=== PATIENT | male | born 1975 | race Caucasian/White ===

== ENCOUNTER 2019-06-19 00:21 | Inpatient (IN) | payer OTHER, SELFPAY ==
[2019-06-19] MEDS ORDERED: Lorazepam 2 MG/ML VIAL ONE (00:39)
[2019-06-19 00:50] LABS: Actual Bicarbonate (HCO3a) 25.2 mEq/L (22-28); Analyzer IN Cardio ER; Base Excess (BEa) -6.7 mEq/L (-2.0 to +3.0); Calcium, Ionized 1.12 mmol/L (1.12-1.30); Carboxyhemoglobin (COHb) 0.3 gm% (0.0-3.0); Hemoglobin (Hb) 15.9 g/dL (14.0-18.0); Potassium - ABG Lab 3.55 mmol/L (3.70-5.30)
[2019-06-19] MEDS ORDERED: niCARdipine 20MG In NaCl 20 MG/200 ML BAG ONE (00:50)
[2019-06-19 01:05] LABS: Puncture Site LRA; pH, Arterial 7.11 (7.35-7.45)
[2019-06-19 01:44] LABS: Actual Bicarbonate (HCO3a) 24.4 mEq/L (22-28); Analyzer IN Cardio ER; Base Excess (BEa) -5.9 mEq/L (-2.0 to +3.0); Carboxyhemoglobin (COHb) 0.5 gm% (0.0-3.0); O2 Tension (PaO2), arterial 65.8 mmHg (80.0-100.0); Potassium - ABG Lab 3.49 mmol/L (3.70-5.30)
[2019-06-19] MEDS ORDERED: Promethazine HCl 12.5 MG in Sodium Chloride 0.9% 50 ML IVPB PRN (02:07)
[2019-06-19] MEDS ORDERED: cloNIDine 0.1 MG TAB PO PRN (02:07)
[2019-06-19] MEDS ORDERED: Ondansetron PF 4 MG/2 ML Vial IVP PRN (02:07)
[2019-06-19] MEDS ORDERED: Morphine 2 MG/ML SYRINGE SLOW IVP PRN ×2 (02:07→02:19)
[2019-06-19 02:08] LABS: CO2 Tension 69.1 mmHg (35.0-45.0); pH, Arterial 7.17 (7.35-7.45)
[2019-06-19] MEDS ORDERED: Dextrose 5% in Water 1,000 ML IV PRN ×2 (02:08→12:29)
[2019-06-19] MEDS ORDERED: HYDROcodone/Acetaminophen 5/325 mg Tablet PO PRN (02:08)
[2019-06-19] MEDS ORDERED: Dextrose 50% Abboject 50 ML SYRINGE SLOW IVP PRN ×2 (02:08→12:29)
[2019-06-19] MEDS ORDERED: Senokot S 8.6-50 MG TAB PO PRN (02:08)
[2019-06-19] MEDS ORDERED: HumaLOG 300 UNITS/3 ML VIAL SC PRN (02:08)
[2019-06-19] MEDS ORDERED: Bisacodyl 5 MG TAB PO PRN (02:08)
[2019-06-19 02:09] LABS: ALV-art Gradient 560.825 (0-20); Puncture Site LBA
[2019-06-19] MEDS ORDERED: CCU Electrolyte Replacement 1 EACH IVPB ONE (02:11)
[2019-06-19] MEDS ORDERED: niCARdipine 25 MG in Sodium Chloride 0.9% 250 ML 250 ML IVPB SCH (02:15)
[2019-06-19] MEDS ORDERED: Ventilator Sedation Protocol 1 EACH FS SCH (02:15)
--- NOTE | 2019-06-19 02:15 | PDOC.HHP ---
Hospitalist HPI - History of Present Illness Cardiac arrest History of Present Illness: Patient is a 43 year old male with unknown PMH admitted as transfer from [facility] for cardiac arrest, EMS was called to a motel for shortness of breath and found patient in respiratory distress, this progressed to bradycardia and cardiac arrest/pulseless and patient underwent CPR w/ ROSC and was intubated, in outside ED imaging concerning for flash pulmonary edema, started on nitroglycerine drip as BP was very elevated, here was converted to cardene drip due to continued high BP and pulse, patient sent for CTA of chest which is pending, patient to be admitted to CCU for further workup and care. He is hypothermic in the ED. ABG w/ pH 87.11, pCO2 82, pO2 66. UDS positive for marijuana. Records from [facility] for:TnI 0.270, d dimer 3.74, K 3.2, Cr 1.55, glucose 513, elevated LFTs, lactic acid 13, bnp 1537, EKG atrial flutter with rate 134, nonspecific ST changes. He has labs in EMR from [facility] for A1C > 14. ED Course: VITAL SIGNS Sun June 19, 2019 01:40 ALVARO Morejon Jennifer BP: 191/122 MAP: 145 Pulse: 140 Resp: 20 Pain: utr O2 sat: 89 on (Ventilator) End-Tidal CO2: 52 Time: 06/19/2019 01:40. Hospitalist ROS - Review of Systems ROS unobtainable: due to endotracheal tube Hospitalist History - Past Medical History Other Medical History: unknown - Past Surgical History Other Surgical History: unknown - Family History Other Family History: unknown - Social History Other Social History: unknown - Exam General - other findings: intubated, sedated Eye - other findings: sluggish response bilaterally but equal ENT: moist mucosa ENT - other findings: et tube in place Neck: supple Neck - other findings: exam limited by habitus Heart - other findings: tachycardia, regular, no murmur Respiratory: CTAB, no wheezes, no rales, no ronchi Gastrointestinal: soft, non-tender, non-distended, normal bowel sounds Extremities: no cyanosis, no clubbing, 2+ LE edema Skin: no lesions, no rashes Neurological - other findings: sedated Musculoskeletal: normal tone, no muscle wasting Psychiatric - other findings: sedated Hospitalist Results - Labs Lab results: ABG pH 7.11 (7.35-7.45) L* 06/19/19 00:45 ABG pCO2 82.0 mmHg (35.0-45.0) H* 06/19/19 00:45 ABG pO2 66.0 mmHg (80.0-100.0) L 06/19/19 00:45 Additional comment: outside records reviewed, see HPI for relevant findings Hospitalist H&P A/P - Plan Plan: 43 year old male with unknown PMH admitted for: # s/p cardiac arrest # respiratory failure # hypertensive emergency - s/p cardiac arrest after calling EMS to [facility], no known contacts or history, acheived [facility] before transfer, found to be tachycardic in atrial flutter, flash pulmonary edema in setting of extremely high BP - admit to CCU - trend enzymes - repeat EKG - follow up CTA, had elevated d dimer at [facility] - MA aspirin, continue cardene drip - consult cardiology and pulmonary - empiric vancomycin and zosyn, cultures ordered - echo ordered - hypothermia protocol # acute hypoxic respiratory failure - sedation protocol, repeat ABG, continue ventilatory, will communicate with Dr Shahid for further advice # diabetes w/ hyperglycemia - was 500s on presentation at outside hospital, insulin drip ordered # hypokalemia - recheck and replete if needed # elevated LFTs - suspect shock liver, recheck now, consider abdominal imaging based on clinical course # elevated troponin - suspect due to HTN emergency, continue as above, consult cardiology # atrial flutter - control rate as able with drips, UDS negative except for marijuana unknown medical history # lactic acidosis - treat as above, empiric abx and cultures in case sepsis # elevated creatinine - unknown baseline, recheck now # acute heart failure - in setting of HTN emergency, daigle in place, strict I/Os , IV lasix ordered dvt ppx, GI ppx presume full code 50 minutes critical care time
[2019-06-19] MEDS ORDERED: Potassium Chloride 40 MEQ in Premix Bag 1 BAG IVPB PRN (02:18)
[2019-06-19] MEDS ORDERED: Magnesium Oxide 400 MG TAB PO PRN ×2 (02:18)
[2019-06-19] MEDS ORDERED: Potassium Phosphate 12 MMOL in Sodium Chloride 0.9% 250 ML 250 ML IV PRN (02:18)
[2019-06-19] MEDS ORDERED: Potassium Chloride 40 MEQ in Sodium Chloride 0.9% 250 ML 250 ML IVPB PRN (02:18)
[2019-06-19] MEDS ORDERED: Potassium Phosphate 15 MMOL in Sodium Chloride 0.9% 250 ML 250 ML IV PRN (02:18)
[2019-06-19] MEDS ORDERED: CCU ELECTROLYTE REPLACEMENT PROTOCOL FS PRN (02:18)
[2019-06-19] MEDS ORDERED: Magnesium 2 GM/50 ML 2 GM in Premix Bag 1 BAG IVPB PRN (02:18)
[2019-06-19] MEDS ORDERED: Potassium Phosphate 9 MMOL in Sodium Chloride 0.9% 100 ML IVPB PRN (02:18)
[2019-06-19] MEDS ORDERED: PHOS-NAK 1 PKT PACK PO PRN ×2 (02:18)
[2019-06-19] MEDS ORDERED: Potassium Chloride 20 MEQ TAB PO PRN (02:18)
[2019-06-19] MEDS ORDERED: DISCONTINUE PREVIOUS NARCOTIC PAIN MEDICATIONS AND BENZODIAZEPINES FS SCH (02:19)
[2019-06-19] MEDS ORDERED: Fentanyl BOLUS 250 ML IVPB PRN (02:19)
[2019-06-19] MEDS ORDERED: Propofol BOLUS 1,000 MG/100 ML VIAL IV PRN (02:19)
[2019-06-19] MEDS ORDERED: HUMULIN R 100 UNITS in Sodium Chloride 0.9% 100 ML IVPB SCH (02:45)
[2019-06-19 02:52] LABS: ALT (SGPT) 348 U/L (8-55); AST (SGOT) 254 U/L (5-34); Albumin 4.1 g/dL (3.5-5.0); Alkaline Phosphatase 164 U/L (40-110); Anion Gap 18 mmol/L (10-20); BUN (Urea Nitrogen) 13 mg/dL (8.9-20.6); Bilirubin, Direct 0.5 mg/dL (0.1-0.3); Bilirubin, Total 0.8 mg/dL (0.2-1.2); Calc. Creatinine Clearance 0 mL/min (70-130); Calcium 8.3 mg/dL (7.8-10.44); Carbon Dioxide 24 mmol/L (22-29); Chloride 101 mmol/L (98-107); Estimated GFR-MDRD 41; Magnesium 2.1 mg/dL (1.6-2.6); Phosphorus 6.8 mg/dL (2.3-4.7); Potassium 3.3 mmol/L (3.5-5.1); Protein, Total 6.9 g/dL (6.0-8.3); Sodium 140 mmol/L (136-145)
[2019-06-19 02:54] LABS: Troponin I 0.291 ng/mL (< 0.028)
[2019-06-19 02:55] LABS: Glucose 568 mg/dL (70-105); Lactic Acid 4.5 mmol/L (0.5-2.2)
[2019-06-19] MEDS ORDERED: Furosemide 40 MG/4 ML VIAL SLOW IVP SCH ×2 (03:00→05:45)
[2019-06-19 03:06] LABS: Band 29 % (5-11); Hemoglobin 15.4 g/dL (14.0-18.0); Lymphocytes 4 % (21-51); MDiff Complete? YES; Mean Corpuscular HGB CONC 32.2 g/dL (32.0-36.0); Mean Corpuscular Hemoglobin 29.7 pg (27.0-31.0); Mean Corpuscular Volume 92.4 fL (78.0-98.0); Mean Platelet Volume 8.2 fL (7.4-10.4); Neutrophil 67 % (42-75); Platelet Count 191 thou/uL (130-400); Platelet Morphology Comment Appears Adequate; RBC Distribution Width 13.7 % (11.5-14.5); Red Blood Cell (RBC) Count 5.19 mill/uL (4.70-6.10); White Blood Cell (WBC) Count 21.5 thou/uL (4.8-10.8)
[2019-06-19 03:40] LABS: INR-International Normal Ratio 1.1; Prothrombin Time 13.8 SEC (12.0-14.7)
[2019-06-19] MEDS: niCARdipine 25 MG in Sodium Chloride 0.9% 250 ML 240 ML IVPB SCH ×3 (04:09→22:34)
[2019-06-19 04:31] LABS: Bacteria/HPF None Seen HPF (None Seen); Bilirubin Negative (Negative); Blood, Urine 1+ (Negative); Clarity Clear (Clear); Glucose, Urine (Dipstick) Greater than 1000 mg/dL (Negative); Leukocyte Negative Leu/uL (Negative); Nitrite Negative (Negative); Protein, Urine (Dipstick) 20 mg/dL (Neg-Trace); RBC/HPF 0-3 HPF (0-3); Squamous Epithelial 0-3 HPF (0-3); Urobilinogen Normal mg/dL (Less than 2); WBC/HPF 0-3 HPF (0-3)
[2019-06-19] MEDS: Piperacillin/Tazobactam 3.375 GM in Sodium Chloride 0.9% 100 ML IVPB SCH ×4 (05:41→23:28)
[2019-06-19] MEDS ORDERED: methylPREDNISolone Sod Succ 40 MG VIAL IVP SCH (06:00)
[2019-06-19 06:07] LABS: Actual Bicarbonate (HCO3a) 14.8 mEq/L (22-28); Base Excess (BEa) -10.4 mEq/L (-2.0 to +3.0); CO2 Tension 31.8 mmHg (35.0-45.0); Calcium, Ionized 1.06 mmol/L (1.12-1.30); Carboxyhemoglobin (COHb) 0.9 gm% (0.0-3.0); Hemoglobin (Hb) 16.7 g/dL (14.0-18.0); Potassium - ABG Lab 3.08 mmol/L (3.70-5.30); pH, Arterial 7.29 (7.35-7.45)
[2019-06-19 06:12] LABS: INR-International Normal Ratio 1.1; PTT 26.2 SEC (22.9-36.1)
[2019-06-19 06:15] LABS: O2 Tension (PaO2), arterial 58.8 mmHg (80.0-100.0); Puncture Site RR
[2019-06-19 06:45] LABS: Troponin I 0.365 ng/mL (< 0.028)
[2019-06-19] MEDS: Vecuronium 10 MG VIAL IV PRN ×4 (07:27→22:35)
[2019-06-19] MEDS: Propofol 1,000 MG/100 ML VIAL IV PRN ×4 (07:40→23:28)
--- NOTE | 2019-06-19 08:10 | RAD ---
RADIOGRAPH CHEST 1 VIEW: DATE: 06/19/2019 TIME: 1:15 AM HISTORY: 43-year-old male with dyspnea, status post intubation COMPARISON: none FINDINGS: Hypoinflated lungs. Diffuse alveolar infiltrates throughout both lungs. Endotracheal tube at mid thor acic trachea. Esophagogastric tube partially visualized. No pneumothorax. IMPRESSION: Diffuse severe partial opacification of both lungs. Endotracheal tube and esophagogastric tube.
[2019-06-19] MEDS: Aspirin 300 MG Suppository PR SCH (08:30)
[2019-06-19] MEDS: Enoxaparin Sodium 40 MG/0.4 ML SYRINGE SC SCH (08:35)
--- NOTE | 2019-06-19 08:51 | CT ---
PRELIMINARY REPORT/[facility]/EMERGENCY AFTER HOURS PROCEDURE: This report was discussed with Concepcion Burns RN by Rhonda Jeong on June 19, 2019 02:30:00 CDT. Addendum electronically signed by Rhonda Jeong on June 19, 2019 2:31:20 AM CDT EXAM: CTA Chest with Intravenous Contrast CLINICAL HISTORY: PT. C/O SOB CONTRAST: With; ISOVUE 370,100mL COMPARISON: None provided. FINDINGS: ET tube terminates in the mid thoracic trachea. Enteric tube terminates in the stomach. PULMONARY ARTERIES Evaluation is markedly limited given the arms at the patient's side which causes artifact across the posterior aspect of the pulmonary arteries and aorta. No large pulmonary emboli seen in the main pul monary arteries. AORTA No thoracic aortic aneurysm or dissection. LUNGS There is near complete consolidation of the lower lobes with scattered airspace disease in the bilate ral upper lobes and right middle lobe. PLEURAL SPACES No pleural effusion. No pneumothorax. HEART AND MEDIASTINUM Moderate cardiomegaly. No significant pericardial effusion. LYMPH NODES Multiple prominent mediastinal lymph nodes. BONES No focal osseous abnormality or acute fracture. CHEST WALL AND UPPER ABDOMEN Partially seen left adrenal nodule that measures at least 1.9 cm in diameter. The chest wall is unrem arkable. IMPRESSION: Severely limited examination due to artifact. There is no large pulmonary emboli in the main bilater al pulmonary arteries. The more distal arteries are either poorly opacified or limited by artifact. Consider a repeat examination if concern persists with the arms up, if possible. Marked bilateral lower lobe consolidation, likely at least partially attributable to atelectasis. Ot her considerations include infection, edema, and aspiration. There are a few prominent mediastinal lymph nodes. Moderate cardiomegaly with reflux of contrast deep into the IVC which can be a sign of heart failure. Partially seen left adrenal nodule that measures at least 1.9 cm in diameter. Recommend a CT abdomen and pelvis to further evaluate full size of nodule and to exclude a mass. ELECTRONICALLY SIGNED BY: Jose Manuel Bush MD June 19, 2019 2:21:18 AM CDT This report is intended for review by the ordering physician only, in accordance of law. If you recei ve this report in error, please call [facility] at [phone]. FINAL REPORT CT ANGIOGRAM CHEST WITH CONTRAST: HISTORY: Chest pain. COMPARISON: Radiograph of chest same day for reference. FINDINGS: CT angiogram chest performed after the intravenous administration of contrast. 3D rendering provided. Severe lung hypoinflation with atelectasis of 40-50% of the lung volume posteriorly. Numerous enlarge d mediastinal lymph nodes. Heart size is enlarged. There is reflux of contrast within the infrahepati c IVC. Endotracheal tube tip is above the daisy. Enteric tube tip below diaphragm, though out of field of v iew. IMPRESSION: Findings and impression are concordant with the preliminary report. Severe lung hypoinflation with at electatic changes of nearly the entire posterior aspect of the lungs bilaterally. There is also some atypical consolidation within the right upper lobe. Underlying diffuse pneumonia is a possibility. POS: HOME
[2019-06-19 08:59] LABS: Troponin I 0.388 ng/mL (< 0.028)
[2019-06-19 09:00] LABS: Anion Gap 30 mmol/L (10-20); BUN (Urea Nitrogen) 15 mg/dL (8.9-20.6); Calc. Creatinine Clearance 102 mL/min (70-130); Calcium 8.5 mg/dL (7.8-10.44); Carbon Dioxide 13 mmol/L (22-29); Chloride 101 mmol/L (98-107); Estimated GFR-MDRD 38; Glucose 768 mg/dL (70-105); Magnesium 1.9 mg/dL (1.6-2.6); Phosphorus 3.9 mg/dL (2.3-4.7); Potassium 3.1 mmol/L (3.5-5.1); Sodium 141 mmol/L (136-145)
[2019-06-19] MEDS ORDERED: Famotidine 20 MG TAB PO SCH (09:00)
[2019-06-19] MEDS ORDERED: Iopamidol 370 76% 100 ML VIAL ONE (09:17)
[2019-06-19 09:58] LABS: Glucose 768 mg/dL (70-105)
[2019-06-19] MEDS: Lorazepam 2 MG/ML VIAL SLOW IVP PRN (10:55)
[2019-06-19] MEDS: Labetalol HCl 100 MG/20 ML VIAL SLOW IVP PRN ×2 (10:55→18:26)
--- NOTE | 2019-06-19 11:12 | CON ---
DATE OF CONSULTATION: 06/19/2019 REASON FOR CONSULTATION: Cardiac arrest and flash pulmonary edema. HISTORY OF PRESENT ILLNESS: Mr. Gómez is a 43-year-old white gentleman, who comes to the hospital, brought in by EMS for cardiac arrest. He was at a motel in [place] with a roommate and he was found down by his roommate, who called 911. By the time EMS arrived, he was in severe respiratory distress, which eventually progressed to bradycardia and PEA arrest. CPR was done in the field with return of spontaneous circulation and eventually intubated. He was taken to the [place] ER, where chest x-ray showed flash pulmonary edema and his blood pressure was extremely high, so he was started on nitroglycerin drip and sent over to [facility] in [place]. His nitroglycerin drip was then converted to Cardene and eventually stopped this morning as blood pressure was much better. Cardiology is being consulted as his troponins were mildly elevated and he had a cardiac arrest. PAST MEDICAL HISTORY: Unknown. SOCIAL HISTORY: Unknown. However, UDS was positive for marijuana. FAMILY HISTORY: Unknown. REVIEW OF SYSTEMS: Unobtainable as the patient is intubated. OUTPATIENT MEDICATIONS: Unknown. ALLERGIES: UNKNOWN. PHYSICAL EXAMINATION: VITAL SIGNS: Temperature 93.6 being cold. Pulse 77, respiratory rate 20, saturating 99% on 50% FiO2, blood pressure 102/67. GENERAL: Sedated, intubated, currently paralyzed. HEENT: Normocephalic, atraumatic. NECK: Supple. LUNGS: Clear anteriorly. ABDOMEN: Soft. EXTREMITIES: 2+ edema. SKIN: Warm and dry. LABORATORY DATA: Laboratory work was reviewed. White count of 21 with 67% neutrophils, 29% bands, and 4% lymphocytes. Coags were normal. ABGs were reviewed. Chemistries: Glucose ; creatinine 1.97 up from 1.83; GFR at 38; potassium was 3.1 this morning, however, 3.3 earlier overnight. Troponin was 0.29, then 0.36, then 0.38. BNP was elevated. Phosphorus 6.8. Lactic acid was 4.5. AST 254, ALT 348, alkaline phosphatase 164. UA was unremarkable except for 10 ketones and greater than 1000 glucose, 1+ urine blood. Chest x-ray showed diffuse opacification of both lungs, and CT of the chest showed no pulmonary emboli in the main bilateral pulmonary arteries. Marked bilateral lower lobe consolidations, thought to be atelectasis, infection, edema, or aspiration. Few prominent mediastinal lymph nodes with moderate cardiomegaly, reflux into the IVC, 1.9 cm nodule in the left adrenal gland. COVID-19 testing is pending. ASSESSMENT: 1. [id number] cardiac arrest. 2. PEA arrest. 3. Flash pulmonary edema. 4. Possible right lower lobe pneumonia . 5. Severe hypoxic respiratory insufficiency requiring mechanical ventilation. 6. Substance abuse positive for marijuana. PLAN: 1. Once COVID-19 is ruled out, we will get an echocardiogram. This is unlikely to be a COVID case. We will wait for rule out. 2. He already is diuresing quite well, putting out about 500 mL/hr. 3. Off all drips, his blood pressure came down nicely after he was sedated better and started diuresing. 4. No plans for cardiac catheterization at this time as this seems to be a hypoxic event rather than an acute coronary syndrome. Thank you for letting us to participate in the care of your patient. We will continue to follow. Job ID: [id number]
[2019-06-19 11:30] LABS: Glucose 789 mg/dL (70-105)
[2019-06-19] MEDS: methylPREDNISolone Sod Succ 40 MG VIAL IVP SCH ×3 (11:45→23:28)
[2019-06-19 11:58] LABS: SARS-CoV-2 MS2 Positive; SARS-CoV-2 N Gene Negative; SARS-CoV-2 S Gene Negative; SARS-CoV-2 orf1ab Negative
[2019-06-19 12:23] LABS: Anion Gap 24 mmol/L (10-20); BUN (Urea Nitrogen) 16 mg/dL (8.9-20.6); Calc. Creatinine Clearance 102 mL/min (70-130); Calcium 8.7 mg/dL (7.8-10.44); Carbon Dioxide 19 mmol/L (22-29); Chloride 103 mmol/L (98-107); Estimated GFR-MDRD 38; Potassium 3.8 mmol/L (3.5-5.1); Sodium 142 mmol/L (136-145)
[2019-06-19 12:27] LABS: Glucose 764 mg/dL (70-105)
[2019-06-19] MEDS ORDERED: Dextrose 5 %-0.45 % NaCl 1,000 ML IV PRN (12:29)
[2019-06-19] MEDS ORDERED: Sodium Chloride 0.9% 1,000 ML IV PRN ×4 (12:29)
[2019-06-19] MEDS ORDERED: D5 1/2 NS w/20 mEq KCL 1,000 ML IV PRN (12:29)
[2019-06-19] MEDS ORDERED: Insulin Regular 300 UNITS/3 ML VIAL IVP SCH ×2 (12:30→12:45)
[2019-06-19 14:48] LABS: Glucose 722 mg/dL (70-105)
[2019-06-19] MEDS: NS 0.9% w/ 20 MEQ KCL 1,000 ML/1,000 ML BAG IV PRN ×4 (15:11→23:41)
[2019-06-19 15:32] LABS: Anion Gap 19 mmol/L (10-20); BUN (Urea Nitrogen) 17 mg/dL (8.9-20.6); Calc. Creatinine Clearance 107 mL/min (70-130); Calcium 7.9 mg/dL (7.8-10.44); Carbon Dioxide 23 mmol/L (22-29); Chloride 108 mmol/L (98-107); Estimated GFR-MDRD 40; Potassium 3.6 mmol/L (3.5-5.1); Sodium 146 mmol/L (136-145)
[2019-06-19 15:40] LABS: Glucose 613 mg/dL (70-105)
[2019-06-19] MEDS: Metoprolol Tartrate 5 MG/5 ML VIAL IVP SCH ×2 (16:05→22:20)
[2019-06-19] MEDS: HUMULIN R 100 UNITS in Sodium Chloride 0.9% 100 ML IVPB SCH (16:25)
--- NOTE | 2019-06-19 21:43 | CON ---
DATE OF CONSULTATION: 06/19/2019 HISTORY OF PRESENT ILLNESS: Mr. Gómez is a 43-year-old. He was at a motel in [place]. He apparently went down with sudden onset of respiratory distress. He then arrested. He had CPR in the field. I am told that by the hospitalist last night that he had over 30 minutes of CPR. Chest radiographs showed pulmonary edema. He was extremely hypertensive in the emergency department and so he was sent here. He was admitted with the COVID rule out diagnosis. The serology is negative. PAST MEDICAL HISTORY: Was obtained when the nurse contacted family, it is remarkable for type 1 diabetes. He has never been in the hospital here before. FAMILY HISTORY: Noncontributory. REVIEW OF SYSTEMS: Not obtainable. PHYSICAL EXAMINATION: VITAL SIGNS: He was hypertensive this morning, heart rate is 100 respiratory rate per mechanical ventilation. HEENT: Pupils are equal. Sclerae are anicteric. NECK: Supple. LUNGS: Remarkable for coarse and equal breath sounds. HEART: Regular rhythm. ABDOMEN: Soft. EXTREMITIES: Without clubbing, cyanosis, or edema. NEUROLOGIC: Not assessable. LABORATORY AND IMAGING DATA: Chest CT was reviewed, showing bilateral dense alveolar infiltrates. White count 21.5, hemoglobin 15.4, platelets 191. Sodium 146, potassium 3.6, chloride 108, bicarb 23, BUN 17, creatinine 1.89. Creatinine on presentation was 1.83; pH 7.11 at midnight, 7.29 at 6 o'clock this morning; PO2 is 58, and he has converted from bilevel ventilation to volume ventilation today as his exhaled tidal volumes are getting close to a liter. Drug screen was only positive for cannabinoids. Beta hydroxybutyrate was ordered this morning because of increase in his anion gap. It was elevated at . IMPRESSION: 1. Status post [id number] arrest, most likely secondary to hypertensive pulmonary edema. 2. Diabetic ketoacidosis that has developed in the setting of not knowing that he had type 1 diabetes. He has been placed on an insulin drip protocol. He will continue to be mechanically ventilated. He will have daily neurological assessments. It is unclear whether or not he will recover from this neurologically. CRITICAL CARE TIME: 30 minutes. Job ID: [id number] [facility]
[2019-06-19] MEDS: Famotidine/PF 20 mg/2ml Vial SLOW IVP SCH (22:20)
[2019-06-20] MEDS: niCARdipine 25 MG in Sodium Chloride 0.9% 250 ML 240 ML IVPB SCH (02:23)
[2019-06-20] MEDS: Metoprolol Tartrate 5 MG/5 ML VIAL IVP SCH ×4 (03:21→23:50)
[2019-06-20] MEDS: Propofol 1,000 MG/100 ML VIAL IV PRN ×4 (03:21→18:42)
[2019-06-20] MEDS: Lorazepam 2 MG/ML VIAL SLOW IVP PRN (04:24)
[2019-06-20] MEDS: NS 0.9% w/ 20 MEQ KCL 1,000 ML/1,000 ML BAG IV PRN (04:25)
[2019-06-20] MEDS: Piperacillin/Tazobactam 3.375 GM in Sodium Chloride 0.9% 100 ML IVPB SCH ×4 (05:17→23:50)
[2019-06-20] MEDS: methylPREDNISolone Sod Succ 40 MG VIAL IVP SCH ×4 (05:17→23:50)
[2019-06-20 05:24] LABS: ALT (SGPT) 223 U/L (8-55); AST (SGOT) 44 U/L (5-34); Albumin 3.5 g/dL (3.5-5.0); Alkaline Phosphatase 103 U/L (40-110); Anion Gap 15 mmol/L (10-20); BUN (Urea Nitrogen) 23 mg/dL (8.9-20.6); Bilirubin, Direct 0.4 mg/dL (0.1-0.3); Bilirubin, Total 0.6 mg/dL (0.2-1.2); Calc. Creatinine Clearance 122 mL/min (70-130); Calcium 7.8 mg/dL (7.8-10.44); Carbon Dioxide 23 mmol/L (22-29); Chloride 115 mmol/L (98-107); Estimated GFR-MDRD 46; Glucose 327 mg/dL (70-105); Potassium 3.7 mmol/L (3.5-5.1); Protein, Total 6.4 g/dL (6.0-8.3); Sodium 149 mmol/L (136-145)
[2019-06-20 05:31] LABS: Band 7 % (5-11); Hemoglobin 13.7 g/dL (14.0-18.0); Lymphocytes 3 % (21-51); MDiff Complete? YES; Mean Corpuscular HGB CONC 32.4 g/dL (32.0-36.0); Mean Corpuscular Hemoglobin 29.4 pg (27.0-31.0); Mean Corpuscular Volume 90.9 fL (78.0-98.0); Mean Platelet Volume 8.6 fL (7.4-10.4); Metamyelocyte 2 % (0-0); Neutrophil 88 % (42-75); Platelet Count 161 thou/uL (130-400); Platelet Morphology Comment Appears Adequate; RBC Distribution Width 13.9 % (11.5-14.5); RBC Morphology Normal; Red Blood Cell (RBC) Count 4.64 mill/uL (4.70-6.10); White Blood Cell (WBC) Count 18.1 thou/uL (4.8-10.8)
--- NOTE | 2019-06-20 07:40 | RAD ---
Exam: Chest one view HISTORY:Respiratory distress. Ventilated patient. Comparison: 06/19/2019 FINDINGS: Lines and tubes: Stable endotracheal tube and nasogastric tube. Cardiac silhouette:Persistent cardiomegaly Aorta: Unremarkable Pulmonary vessels: Persistent prominence of the point vasculature Costophrenic angles: Improved pleural effusions LUNGS: Persistent alveolar and interstitial opacities. Degree of opacification has decreased. Pneumothorax: None Osseous abnormalities: None IMPRESSION: Improved aeration lung parenchyma. Continued surveillance to resolution is recommended
[2019-06-20 08:13] LABS: Actual Bicarbonate (HCO3a) 19.5 mEq/L (22-28); Base Excess (BEa) -3.3 mEq/L (-2.0 to +3.0); CO2 Tension 29.2 mmHg (35.0-45.0); Calcium, Ionized 1.01 mmol/L (1.12-1.30); Carboxyhemoglobin (COHb) 0.9 gm% (0.0-3.0); Hemoglobin (Hb) 13.5 g/dL (14.0-18.0); Potassium - ABG Lab 3.65 mmol/L (3.70-5.30); pH, Arterial 7.44 (7.35-7.45)
[2019-06-20 08:14] LABS: O2 Tension (PaO2), arterial 58.3 mmHg (80.0-100.0); Puncture Site RRA
[2019-06-20] MEDS: Aspirin 300 MG Suppository PR SCH (08:16)
[2019-06-20] MEDS: Famotidine/PF 20 mg/2ml Vial SLOW IVP SCH ×2 (08:16→20:37)
[2019-06-20] MEDS: Enoxaparin Sodium 40 MG/0.4 ML SYRINGE SC SCH (08:16)
[2019-06-20] MEDS ORDERED: D5 1/2 NS w/20 mEq KCL 1,000 ML IV SCH (08:30)
--- NOTE | 2019-06-20 08:52 | PDOC.HOSPP ---
- Subjective Encounter Date: 06/20/19 non-verbal - Objective Vital Signs & Weight: Vital Signs (12 hours) Temp Pulse Resp BP Pulse Ox 06/20/19 08:06 90 06/20/19 07:00 99.9 F H 06/20/19 06:00 99.4 F 21 H 06/20/19 05:00 99.5 F 06/20/19 04:00 99.4 F 28 H 06/20/19 03:00 99.3 F 06/20/19 02:14 93 L 06/20/19 02:12 104 H 160/94 H 06/20/19 02:00 27 H 06/20/19 01:58 99.5 F 06/20/19 00:49 103 H 20 93 L 06/20/19 00:00 99.7 F H 20 06/19/19 22:59 99.4 F 06/19/19 22:18 88 128/69 06/19/19 22:00 99.4 F 22 H 06/19/19 21:00 99.5 F Weight Weight 327 lb 9.71 oz Most Recent Monitor Data Heart Rate from ECG 89 NIBP 152/91 NIBP BP-Mean 111 Respiration from ECG 23 SpO2 95 I&O: 06/19/19 06/20/19 06/21/19 06:59 06:59 06:59 Intake Total 754.2 8792.9 Output Total 1800 6580 20 Balance -1045.8 2212.9 -20 Result Diagrams: 06/20/19 04:02 06/20/19 04:02 Additional Labs: Accuchecks 06/20/19 06/20/19 06/20/19 06:19 05:16 04:13 POC Glucose 257 H 287 H 305 H 06/20/19 06/20/19 06/20/19 03:19 02:19 01:34 POC Glucose 312 H 298 H 326 H 06/20/19 06/19/19 06/19/19 00:13 23:09 22:30 POC Glucose 360 H 366 H 399 H 06/19/19 06/19/19 06/19/19 21:14 20:14 19:04 POC Glucose 417 H 440 H 490 H 06/19/19 06/19/19 18:05 17:00 POC Glucose 430 H 472 H Hospitalist ROS - Medication Medications: Active Medications Generic Name Dose Route Start Last Admin Trade Name Freq PRN Reason Stop Dose Admin Albuterol/Ipratropium 3 ml 06/19/19 07:00 06/20/19 08:11 Duoneb NEB 3 ml [id number] SHARMILA Administration Aspirin 300 mg 06/19/19 09:00 06/20/19 08:16 Aspirin IN 300 mg DAILY SHARMILA Administration Enoxaparin Sodium 40 mg 06/19/19 09:00 06/20/19 08:16 Lovenox SC 40 mg 0900 SHARMILA Administration Famotidine 20 mg 06/19/19 21:00 06/20/19 08:16 Pepcid SLOW IVP 20 mg BID SHARMILA Administration Piperacillin Sod/Tazobactam 100 mls @ 200 mls/hr 06/19/19 06:00 06/20/19 05: 17 Sod 3.375 gm/ Sodium Chloride IVPB 100 mls Q6HR SHARMILA Administration Potassium Chloride 40 meq/ 100 mls @ 50 mls/hr 06/19/19 02:18 06/19/19 09:32 Device IVPB 100 mls ASDIR PRN Administration FOR SERUM K+ 2.5 - 3.5 Nicardipine HCl 25 mg/ Sodium 250 mls @ 0 mls/hr 06/19/19 03:30 06/20/19 02: 23 Chloride IVPB 250 mls INF SHARMILA Administration Protocol Titrate Vancomycin HCl 2 gm/ Sodium 500 mls @ 250 mls/hr 06/19/19 16:00 06/20/19 05: 15 Chloride IVPB 500 mls 0400,1600 SHARMILA Administration Insulin Human Regular 100 101 mls @ 0 mls/hr 06/19/19 12:30 06/19/19 16:25 units/ Sodium Chloride IVPB 101 mls INF SHARMILA Administration Protocol As Directed Potassium Chloride/Sodium Chloride 1,000 ml in 1,000 mls @ 500 mls/hr 12:29 06/19/19 17:15 Ns 0.9% W/ 20 Meq Kcl IV 1,000 mls .Q2H PRN Administration STEP 2: DKA PROTOCOL Protocol Potassium Chloride/Sodium Chloride 1,000 ml in 1,000 mls @ 250 mls/hr 12:29 06/20/19 04:25 Ns 0.9% W/ 20 Meq Kcl IV 1,000 mls .Q4H PRN Administration STEP 3: DKA PROTOCOL Potassium Chloride/Dextrose/Sod Cl 1,000 mls @ 200 mls/hr 06/20/19 08:30 06/05 08:30 D5 1/2 Ns W/20 Meq Kcl IV 06/20/19 13:29 1,000 mls .Q5H SHARMILA Administration Labetalol HCl 20 mg 06/19/19 02:07 06/19/19 18:26 Normodyne SLOW IVP 20 mg Q4H PRN Administration SBP > 160 use third Lorazepam 2 mg 06/19/19 02:19 06/20/19 04:24 Ativan SLOW IVP 07/19/19 02:19 2 mg Q1H PRN Administration Breakthrough agitation Methylprednisolone Sodium Succinate 40 mg 06/19/19 12:00 06/20/19 05:17 Solu-Medrol IVP 40 mg Q6HR SHARMILA Administration Metoprolol Tartrate 5 mg 06/19/19 16:00 06/20/19 03:21 Lopressor IVP 5 mg 0400,1000,1600,2200 SHARMILA Administration Propofol 1,000 mg 06/19/19 02:19 06/20/19 07:40 Diprivan IV 07/19/19 02:19 1,000 mg INF PRN Administration TO ACHIEVE GOAL RASS Protocol Vecuronium [place] 10 mg 06/19/19 07:30 06/19/19 22:35 Norcuron IV 10 mg Q30MIN PRN Administration SHIVERING - Exam General - other findings: Intubated ENT: normocephalic atraumatic Neck: supple Heart: RRR Respiratory: normal chest expansion, no tachypnea Gastrointestinal: non-distended Extremities: no cyanosis, no clubbing Hosp A/P (1) DKA (diabetic ketoacidoses) Code(s): E11.10 - TYPE 2 DIABETES MELLITUS WITH KETOACIDOSIS WITHOUT COMA Status: Acute (2) Cardiac arrest Code(s): I46.9 - CARDIAC ARREST, CAUSE UNSPECIFIED Status: Acute (3) Acute respiratory failure with hypoxia Code(s): J96.01 - ACUTE RESPIRATORY FAILURE WITH HYPOXIA Status: Acute (4) High anion gap metabolic acidosis Code(s): E87.2 - ACIDOSIS Status: Acute (5) Hypertensive urgency Code(s): I16.0 - HYPERTENSIVE URGENCY Status: Acute (6) Hypernatremia Code(s): E87.0 - HYPEROSMOLALITY AND HYPERNATREMIA Status: Acute - Plan Mechanical ventilation management per critical care team. Acidosis improved with ventilation and DKA protocol. Nicardipine drip is on hold as his pressures are improving. Change fluids to D51/2NS due to hypernatremia and continue to titrate insulin drip accordingly. Check BMP q4hr. Plan to change IVF to 1/2 NS at 75 and initiate sc Lantus and tube feeding if his acidosis resolves.
[2019-06-20] MEDS: fentaNYL Citrate/PF 2,000 MCG in Sodium Chloride 0.9% 60 ML IV SCH (09:21)
[2019-06-20] MEDS: HUMULIN R 100 UNITS in Sodium Chloride 0.9% 100 ML IVPB SCH ×2 (10:09→23:49)
[2019-06-20] MEDS: Vecuronium 10 MG VIAL IV PRN ×2 (10:44→14:36)
--- NOTE | 2019-06-20 11:14 | PRG ---
DATE OF SERVICE: 06/20/2019 SUBJECTIVE: Roge Gómez is still encephalopathic when he had sedation holiday this morning. He did not follow commands. It is unclear how much of a neurological injury he will sustain associated with his arrest. OBJECTIVE: VITAL SIGNS: Heart rates in the 80s, blood pressure 115/78, respiratory rates in the 20s. LUNGS: Clear. HEART: Regular rhythm. ABDOMEN: Soft. EXTREMITIES: Without edema. LABORATORY DATA: White count 18.1, hemoglobin 13.7, platelets 161. Bicarb is up to 23 today. PH 7.44, pCO2 of 29, pO2 of 58. IMPRESSION: 1. Type 1 diabetes with diabetic ketoacidosis that developed after admission. 2. Status post ngn-gh-[id number] cardiac arrest. 3. History of cardiomyopathy. 4. Probable aspiration prior to admission with improving radiograph suggesting some of this is pulmonary edema, some of this may have been mucus plugging. 5. Ejection fraction this admission showing systolic function with the ejection fraction of 40% to 45%. Overall, he remains critically ill. He will have an EEG done at some point just to make sure he is not having seizures mixed in with his encephalopathy. Critical care time 30 min. Job ID: [id number] [id number]
[2019-06-20] MEDS: D5 1/2 NS w/20 mEq KCL 1,000 ML IV SCH ×2 (13:27→20:37)
--- NOTE | 2019-06-20 14:19 | PDOC.CPN ---
- Subjective Date: 06/20/19 Time: 14:16 Interval history: He remains sedated and unresponsive. - Review of Systems ROS unobtainable: due to endotracheal tube - Objective Allergies/Adverse Reactions: Allergies Allergy/AdvReac Type Severity Reaction Status Date / Time No Allergy Information Allergy Verified 06/19/19 04:43 Available Visit Medications: Current Medications Acetaminophen (Tylenol) 650 mg PO Q4H PRN PRN Reason: Headache/Fever/Mild Pain (1-3) Hydrocodone Bitart/Acetaminophen ([place] 5/325) 1 tab PO Q4H PRN PRN Reason: Moderate Pain (4-6) Albuterol/Ipratropium (Duoneb) 3 ml NEB [id number] PRN PRN Reason: SOB &/or Wheezing Albuterol/Ipratropium (Duoneb) 3 ml NEB [id number] [facility] Last Admin: 06/20/19 13:53 Dose: 3 ml Aspirin (Aspirin) 300 mg [place] DAILY [facility] Last Admin: 06/20/19 08:16 Dose: 300 mg Bisacodyl (Dulcolax) 10 mg PO DAILYPRN PRN PRN Reason: Constipation Clonidine (Catapres) 0.1 mg PO BID PRN PRN Reason: SBP > 160 use second Dextrose/Water (Dextrose 50%) 25 gm SLOW IVP PRN PRN PRN Reason: Hypoglycemia Dextrose/Water (Dextrose 50%) 25 gm SLOW IVP ONE PRN PRN Reason: HYPOGLYCEMIA PROTOCOL Stop: 06/26/19 12:30 Enoxaparin Sodium (Lovenox) 40 mg SC 0900 [facility] Last Admin: 06/20/19 08:16 Dose: 40 mg Famotidine (Pepcid) 20 mg SLOW IVP BID [facility] Last Admin: 06/20/19 08:16 Dose: 20 mg Glucagon (Glucagon) 1 mg IM PRN PRN PRN Reason: Hypoglycemia Hydralazine HCl (Apresoline) 10 mg SLOW IVP Q6H PRN PRN Reason: SBP GREATER THAN 160 Promethazine HCl 12.5 mg/ (Sodium Chloride) 50.5 mls @ 202 mls/hr IVPB Q6H PRN PRN Reason: Nausea/vomiting use second Piperacillin Sod/Tazobactam (Sod 3.375 gm/ Sodium Chloride) 100 mls @ 200 mls/ hr IVPB Q6HR [facility] Last Admin: 06/20/19 11:46 Dose: 100 mls Potassium Chloride 40 meq/ (Sodium Chloride) 270 mls @ 135 mls/hr IVPB ASDIR PRN PRN Reason: FOR SERUM K+ 2.5 - 3.5 Potassium Chloride 40 meq/ (Device) 100 mls @ 50 mls/hr IVPB ASDIR PRN PRN Reason: FOR SERUM K+ 2.5 - 3.5 Last Admin: 06/19/19 09:32 Dose: 100 mls Magnesium Sulfate 1 gm/ Sodium (Chloride) 102 mls @ 102 mls/hr IV PRN PRN PRN Reason: MAG LEVEL 1.4 - 2.0 Magnesium Sulfate 2 gm/ Device 50 mls @ 50 mls/hr IVPB ASDIR PRN PRN Reason: MAGNESIUM < 1.4 Potassium Phosphate 9 mmol/ (Sodium Chloride) 103 mls @ 25.75 mls/hr IVPB ASDIR PRN PRN Reason: Phosphate 1.0-1.8 Potassium Phosphate 12 mmol/ (Sodium Chloride) 254 mls @ 63.5 mls/hr IV ASDIR PRN PRN Reason: Serum phosphate 0.5-0.9 Potassium Phosphate 15 mmol/ (Sodium Chloride) 255 mls @ 63.75 mls/hr IV ASDIR PRN PRN Reason: Serum Phos < 0.5 Fentanyl Citrate 2,000 mcg/ (Sodium Chloride) 100 mls @ 0 mls/hr IV INF SHARMILA; Protocol Stop: 07/19/19 02:19 Last Admin: 06/20/19 09:21 Dose: 100 mls Fentanyl Citrate (Fentanyl Bolus) 250 mls @ 0 mls/hr IVPB PRN PRN PRN Reason: Breakthrough pain/agitation Stop: 07/19/19 02:19 Nicardipine HCl 25 mg/ Sodium (Chloride) 250 mls @ 0 mls/hr IVPB INF SHARMILA; Protocol Last Admin: 06/20/19 02:23 Dose: 250 mls Vancomycin HCl 2 gm/ Sodium (Chloride) 500 mls @ 250 mls/hr IVPB 0400,1600 [facility] Last Admin: 06/20/19 05:15 Dose: 500 mls Insulin Human Regular 100 (units/ Sodium Chloride) 101 mls @ 0 mls/hr IVPB INF SHARMILA; Protocol Last Admin: 06/20/19 10:09 Dose: 101 mls Sodium Chloride (Normal Saline 0.9%) 1,000 mls @ 1,000 mls/hr IV .Q1H PRN; Protocol PRN Reason: STEP 1: DKA PROTOCOL Sodium Chloride (Normal Saline 0.9%) 1,000 mls @ 500 mls/hr IV .Q2H PRN PRN Reason: STEP 1: DKA PROTOCOL Potassium Chloride/Sodium Chloride (Ns 0.9% W/ 20 Meq Kcl) 1,000 ml in 1,000 mls @ 500 mls/hr IV .Q2H PRN; Protocol PRN Reason: STEP 2: DKA PROTOCOL Last Admin: 06/19/19 17:15 Dose: 1,000 mls Sodium Chloride (Normal Saline 0.9%) 1,000 mls @ 500 mls/hr IV INF PRN; Protocol PRN Reason: STEP 2: DKA PROTOCOL Potassium Chloride/Sodium Chloride (Ns 0.9% W/ 20 Meq Kcl) 1,000 ml in 1,000 mls @ 250 mls/hr IV .Q4H PRN PRN Reason: STEP 3: DKA PROTOCOL Last Admin: 06/20/19 04:25 Dose: 1,000 mls Sodium Chloride (Normal Saline 0.9%) 1,000 mls @ 250 mls/hr IV .Q4H PRN PRN Reason: STEP 3:DKA PROTOCOL Dextrose/Sodium Chloride (D5 1/2 Ns) 1,000 mls @ 250 mls/hr IV INF PRN; Protocol PRN Reason: STEP 4: DKA PROTOCOL Potassium Chloride/Dextrose/Sod Cl (D5 1/2 Ns W/20 Meq Kcl) 1,000 mls @ 250 mls /hr IV INF PRN; Protocol PRN Reason: STEP 4: DKA PROTOCOL Dextrose/Water (D5w) 1,000 mls @ 0 mls/hr IV INF PRN PRN Reason: HYPOGLYCEMIA PROTOCOL Potassium Chloride/Dextrose/Sod Cl (D5 1/2 Ns W/20 Meq Kcl) 1,000 mls @ 150 mls /hr IV .Q6H40M [facility] Last Admin: 06/20/19 13:27 Dose: 1,000 mls Labetalol HCl (Normodyne) 20 mg SLOW IVP Q4H PRN PRN Reason: SBP > 160 use third Last Admin: 06/19/19 18:26 Dose: 20 mg Lorazepam (Ativan) 2 mg SLOW IVP Q1H PRN PRN Reason: Breakthrough agitation Stop: 07/19/19 02:19 Last Admin: 06/20/19 04:24 Dose: 2 mg Magnesium Oxide (Magnesium Oxide) 400 mg PO BIDPRN PRN PRN Reason: FOR SERUM MAG 1.4 - 2.0 Magnesium Oxide (Magnesium Oxide) 800 mg PO PRN PRN PRN Reason: FOR SERUM MAG < 1.4 Methylprednisolone Sodium Succinate (Solu-Medrol) 40 mg IVP Q6HR [facility] Last Admin: 06/20/19 11:47 Dose: 40 mg Metoprolol Tartrate (Lopressor) 5 mg IVP 0400,1000,1600,2200 [facility] Last Admin: 06/20/19 10:11 Dose: 5 mg Miscellaneous Medication (Pharmacy To Dose) 1 each IVPB PRN PRN PRN Reason: Pharmacy to dose Miscellaneous Medication (Phos-Nak) 1 pkt PO TIDPRN PRN PRN Reason: FOR PHOS LEVEL 1.0 - 1.8 Miscellaneous Medication (Phos-Nak) 2 pkt PO TIDPRN PRN PRN Reason: FOR PHOS LEVEL 0.5 - 1.0 Morphine Sulfate (Morphine) 2 mg SLOW IVP Q4H PRN PRN Reason: severe pain 4-10 Morphine Sulfate (Morphine) 2 mg SLOW IVP Q1H PRN PRN Reason: BREAKTHROUGH PAIN/Agitation Stop: 07/19/19 02:19 Ccu Electrolyte (Replacement Protocol) 0 each FS PRN PRN PRN Reason: FOR ELECTROLYTE REPLACEMENT Discontinue Previous Narcotic Pain Medications And Benzodiazepines 1 each FS .ONE [facility] Stop: 07/19/19 02:19 Ondansetron HCl (Zofran) 4 mg IVP Q6H PRN PRN Reason: Nausea/Vomiting use 1st Potassium Chloride (K-Dur) 40 meq PO ASDIR PRN PRN Reason: FOR SERUM K+ 2.5 - 3.5 Potassium Chloride (Klor-Con) 40 meq PER TUBE ASDIR PRN PRN Reason: FOR SERUM K+ 2.5-3.5 Propofol (Diprivan) 1,000 mg IV INF PRN; Protocol PRN Reason: TO ACHIEVE GOAL RASS Stop: 07/19/19 02:19 Last Admin: 06/20/19 12:10 Dose: 1,000 mg Propofol (Diprivan Bolus) 20 mg IV Q5MIN PRN PRN Reason: BREAKTHROUGH AGITATION Stop: 07/19/19 02:19 Senna/Docusate Sodium (Senokot S) 2 tab PO BID PRN PRN Reason: Constipation Sodium Chloride (Flush - Normal Saline) 10 ml IVF PRN PRN PRN Reason: Saline Flush Vecuronium [place] (Norcuron) 10 mg IV Q30MIN PRN PRN Reason: SHIVERING Last Admin: 06/20/19 10:44 Dose: 10 mg Vital Signs & Weight: Vital Signs Temp Pulse Resp BP 06/20/19 13:54 85 160/107 H 06/20/19 13:00 97.0 F L 06/20/19 12:00 97.7 F 06/20/19 11:00 98.3 F 06/20/19 10:52 75 06/20/19 10:00 99.1 F 20 06/20/19 09:00 100.1 F H 06/20/19 08:06 90 06/20/19 08:00 100.5 F H 23 H 06/20/19 07:00 99.9 F H 06/20/19 06:00 99.4 F 21 H 06/20/19 05:00 99.5 F 06/20/19 04:00 99.4 F 28 H 06/20/19 03:00 99.3 F Admit Weight 322 lb Weight 327 lb 9.71 oz - Physical Exam General: other (S/I) HEENT: normocephaly Neck: midline trachea Cardiac: regular rate and rhythm Lungs: scattered rhonchi Neuro: other (Unresponsive.) Abdomen: active bowel sounds Extremities: 1+ LE edema Skin: clear Musculoskeletal: no pain - Labs Result Diagrams: 06/20/19 04:02 06/20/19 04:02 Troponin/CKMB Troponin I 0.388 ng/mL (< 0.028) H* 06/19/19 08:14 - Telemetry Sinus rhythms and dysrhythmias: sinus rhythm - Assessment/Plan Assessment/Plan: 1. Out of hospital cardiac arrest. 2. PEA Arrest 3. Flash pulmonary edema. 4. RLL infiltrate improving with diuresis, likely related more to edema. 5. Substance abuse. 6. Anoxic brain injury, unknown extent of injury at this point. 7. Dilated Cardiomyopathy EF at 40-45%, 8. NSTEMI, Type 2 MD, demand ischemia. PLAN: - BP better controlled after sedation started - Continue IV lasix - Continue IV BB. - Reduced EF has apparently been his baseline in the past.
[2019-06-20 15:44] LABS: Vancomycin, Trough 32.7 ug/mL
--- NOTE | 2019-06-20 16:36 | EEG ---
Referring Physician: Damon RENEE EEG # [id number] TEST TYPE: ROUTINE PORTABLE INPATIENT REPORT: This EEG was performed using 24 channel [employer] video digital EEG machine with 24 disc electrodes. This was a routine EEG recording. Digital analysis of the EEG was done with spike and seizure detection which revealed no abnormalities. BACKGROUND: This is a very low amplitude EEG with no background rhythm observed. HYPERVENTILATION: Not performed. PHOTIC STIMULATION: No response seen with photic stimulation> SLEEP: No stage change was observed. EEG DIAGNOSIS: 1.) Low amplitude generalized theta activity seen throughout the recording. 2.) No reactivity to stimulation. 3.) Absence of posterior background rhythm. CLINICAL INTERPRETATION: THIS EEG IS CONSISTENT WITH SEVERE GENERALIZED NONSPECIFIC CEREBRAL DYSFUNCTION. NO ICTAL OR INTERICTAL EPILEPTIFORM ABNORMALITIES SEEN DURING THE RECORDING. NO REACTIVITY TO STIMULATION WHICH HAS POOR PROGNOSIS. Change Control Manager: LYNETTE Warp Starter: [email or web address] TORRES
[2019-06-21] MEDS: D5 1/2 NS w/20 mEq KCL 1,000 ML IV SCH ×2 (02:28→10:33)
[2019-06-21] MEDS: fentaNYL Citrate/PF 2,000 MCG in Sodium Chloride 0.9% 60 ML IV SCH ×2 (02:37→21:10)
[2019-06-21] MEDS: Lorazepam 2 MG/ML VIAL SLOW IVP PRN ×2 (02:53→21:19)
[2019-06-21] MEDS: Vecuronium 10 MG VIAL IV PRN ×3 (03:13→21:49)
[2019-06-21] MEDS: Metoprolol Tartrate 5 MG/5 ML VIAL IVP SCH ×4 (04:27→22:32)
[2019-06-21] MEDS: Propofol 1,000 MG/100 ML VIAL IV PRN ×3 (04:34→20:11)
[2019-06-21 04:40] LABS: Band 25 % (5-11); Hemoglobin 13.1 g/dL (14.0-18.0); Lymphocytes 5 % (21-51); MDiff Complete? YES; Mean Corpuscular HGB CONC 32.4 g/dL (32.0-36.0); Mean Corpuscular Hemoglobin 30.2 pg (27.0-31.0); Mean Corpuscular Volume 93.2 fL (78.0-98.0); Mean Platelet Volume 8.6 fL (7.4-10.4); Monocytes 2 % (0-10); Neutrophil 68 % (42-75); Platelet Count 151 thou/uL (130-400); Platelet Morphology Comment Appears Adequate; RBC Distribution Width 14.5 % (11.5-14.5); Red Blood Cell (RBC) Count 4.33 mill/uL (4.70-6.10); White Blood Cell (WBC) Count 11.5 thou/uL (4.8-10.8)
[2019-06-21 04:46] LABS: ALT (SGPT) 157 U/L (8-55); AST (SGOT) 39 U/L (5-34); Albumin 3.3 g/dL (3.5-5.0); Alkaline Phosphatase 91 U/L (40-110); Bilirubin, Direct 0.4 mg/dL (0.1-0.3); Bilirubin, Total 0.6 mg/dL (0.2-1.2); Vancomycin, Random 25.1 ug/mL (See Comment)
[2019-06-21 04:53] LABS: Anion Gap 16 mmol/L (10-20); BUN (Urea Nitrogen) 36 mg/dL (8.9-20.6); Calc. Creatinine Clearance 73 mL/min (70-130); Calcium 7.2 mg/dL (7.8-10.44); Carbon Dioxide 19 mmol/L (22-29); Chloride 117 mmol/L (98-107); Estimated GFR-MDRD 25; Glucose 188 mg/dL (70-105); Potassium 4.2 mmol/L (3.5-5.1); Sodium 148 mmol/L (136-145)
[2019-06-21] MEDS ORDERED: Vancomycin HCl 1.25 GM in Sodium Chloride 0.9% 250 ML 250 ML IVPB SCH (05:00)
[2019-06-21] MEDS: Piperacillin/Tazobactam 3.375 GM in Sodium Chloride 0.9% 100 ML IVPB SCH ×4 (05:25→23:46)
[2019-06-21] MEDS: methylPREDNISolone Sod Succ 40 MG VIAL IVP SCH ×4 (05:25→23:47)
[2019-06-21 08:12] LABS: Actual Bicarbonate (HCO3a) 16.7 mEq/L (22-28); Base Excess (BEa) -7.9 mEq/L (-2.0 to +3.0); CO2 Tension 31.6 mmHg (35.0-45.0); Calcium, Ionized 1.03 mmol/L (1.12-1.30); Carboxyhemoglobin (COHb) 0.6 gm% (0.0-3.0); Hemoglobin (Hb) 13.3 g/dL (14.0-18.0); O2 Tension (PaO2), arterial 76.9 mmHg (80.0-100.0); Potassium - ABG Lab 4.41 mmol/L (3.70-5.30); pH, Arterial 7.34 (7.35-7.45)
[2019-06-21 08:14] LABS: Puncture Site RRA
[2019-06-21] MEDS: Famotidine/PF 20 mg/2ml Vial SLOW IVP SCH ×2 (08:32→20:11)
[2019-06-21] MEDS: Aspirin 300 MG Suppository PR SCH (08:32)
[2019-06-21] MEDS: Enoxaparin Sodium 40 MG/0.4 ML SYRINGE SC SCH (08:32)
--- NOTE | 2019-06-21 08:50 | RAD ---
SINGLE VIEW OF THE CHEST: COMPARISON: 06/20/2019. HISTORY: Ventilated patient with respiratory failure. FINDINGS: A single view of the chest shows an enlarged but stable cardiomediastinal silhouette. The endotrache al tube and NG tube are unchanged in position. There is obscurity of the left hemidiaphragm which co uld represent a small left pleural effusion. Opacity is seen in the right hilar region. IMPRESSION: Stable exam. POS: [facility]
[2019-06-21] MEDS ORDERED: Insulin Glargine 20 UNITS in Pre-Filled Syringe 1 EACH SC SCH (09:45)
[2019-06-21] MEDS: Sodium Chloride 0.45% 1,000 ML IV SCH ×2 (10:00→20:12)
[2019-06-21] MEDS: HumaLOG 300 UNITS/3 ML VIAL SC PRN ×3 (12:35→23:48)
[2019-06-21] MEDS: Labetalol HCl 100 MG/20 ML VIAL SLOW IVP PRN (13:20)
[2019-06-21] MEDS: niCARdipine 25 MG in Sodium Chloride 0.9% 250 ML 240 ML IVPB SCH (13:50)
--- NOTE | 2019-06-21 13:57 | PDOC.HOSPP ---
- Subjective Encounter Date: 06/21/19 Subjective: Remains intubated. - Objective Vital Signs & Weight: Vital Signs (12 hours) Temp Pulse Resp BP Pulse Ox 06/21/19 12:00 98.4 F 20 06/21/19 10:58 77 151/106 H 06/21/19 10:00 21 H 06/21/19 08:04 63 06/21/19 08:00 20 06/21/19 07:59 100 06/21/19 07:00 97.4 F L 06/21/19 06:00 20 06/21/19 04:00 99.4 F 20 06/21/19 02:48 90 150/102 H 06/21/19 02:00 20 Weight Admit Weight 322 lb Weight 331 lb 2.149 oz Most Recent Monitor Data Heart Rate from ECG 79 NIBP 171/123 NIBP BP-Mean 139 Respiration from ECG 20 SpO2 93 I&O: 06/20/19 06/21/19 06/22/19 06:59 06:59 06:59 Intake Total 8792.9 5869.1 625 Output Total 6580 756 167 Balance 2212.9 5113.1 458 Result Diagrams: 06/21/19 04:07 06/21/19 04:07 Additional Labs: Accuchecks 06/21/19 06/21/19 06/21/19 12:18 09:25 07:44 POC Glucose 224 H 189 H 169 H 06/21/19 06/21/19 06/21/19 06:03 05:17 04:11 POC Glucose 177 H 215 H 179 H 06/21/19 06/21/19 06/21/19 03:03 02:13 01:14 POC Glucose 179 H 168 H 171 H 06/21/19 06/20/19 06/20/19 00:11 23:23 22:41 POC Glucose 161 H 177 H 156 H 06/20/19 06/20/19 06/20/19 21:09 20:22 19:26 POC Glucose 150 H 168 H 201 H 06/20/19 06/20/19 06/20/19 18:17 17:15 16:19 POC Glucose 189 H 176 H 180 H 06/20/19 14:29 POC Glucose 181 H Hospitalist ROS - Medication Medications: Active Medications Generic Name Dose Route Start Last Admin Trade Name Freq PRN Reason Stop Dose Admin Albuterol/Ipratropium 3 ml 06/19/19 07:00 06/21/19 13:51 Duoneb NEB 3 ml [id number] SHARMILA Administration Aspirin 300 mg 06/19/19 09:00 06/21/19 08:32 Aspirin NC 300 mg DAILY [facility] Administration Enoxaparin Sodium 40 mg 06/19/19 09:00 06/21/19 08:32 Lovenox SC 40 mg 0900 [facility] Administration Famotidine 20 mg 06/19/19 21:00 06/21/19 08:32 Pepcid SLOW IVP 20 mg BID [facility] Administration Piperacillin Sod/Tazobactam 100 mls @ 200 mls/hr 06/19/19 06:00 06/21/19 12: 17 Sod 3.375 gm/ Sodium Chloride IVPB 100 mls Q6HR SHARMILA Administration Potassium Chloride 40 meq/ 100 mls @ 50 mls/hr 06/19/19 02:18 06/19/19 09:32 Device IVPB 100 mls ASDIR PRN Administration FOR SERUM K+ 2.5 - 3.5 Fentanyl Citrate 2,000 mcg/ 100 mls @ 0 mls/hr 06/19/19 02:19 06/21/19 02:37 Sodium Chloride IV 07/19/19 02:19 100 mls INF SHARMILA Administration Protocol Per Protocol Nicardipine HCl 25 mg/ Sodium 250 mls @ 0 mls/hr 06/19/19 03:30 06/21/19 13: 50 Chloride IVPB 250 mls INF SHARMILA Administration Protocol Titrate Sodium Chloride 1,000 mls @ 100 mls/hr 06/21/19 09:45 06/21/19 10:00 1/2 Normal Saline IV 1,000 mls .Q10H [facility]ILA Administration Insulin Human Lispro 0 units 06/21/19 09:36 06/21/19 12:35 Humalog SC 4 unit .MODERATE SLIDING SC PRN Administration MODERATE SLIDING SCALE Protocol Labetalol HCl 20 mg 06/19/19 02:07 06/19/19 18:26 Normodyne SLOW IVP 20 mg Q4H PRN Administration SBP > 160 use third Lorazepam 2 mg 06/19/19 02:19 06/21/19 02:53 Ativan SLOW IVP 07/19/19 02:19 2 mg Q1H PRN Administration Breakthrough agitation Methylprednisolone Sodium Succinate 40 mg 06/19/19 12:00 06/21/19 12:23 Solu-Medrol IVP 40 mg Q6HR SHARMILA Administration Metoprolol Tartrate 5 mg 06/19/19 16:00 06/21/19 10:15 Lopressor IVP 5 mg 0400,1000,1600,2200 [facility] Administration Propofol 1,000 mg 06/19/19 02:19 06/21/19 04:34 Diprivan IV 07/19/19 02:19 1,000 mg INF PRN Administration TO ACHIEVE GOAL RASS Protocol Vecuronium [place] 10 mg 06/19/19 07:30 06/21/19 10:28 Norcuron IV 10 mg Q30MIN PRN Administration SHIVERING - Exam ENT: normocephalic atraumatic Neck: supple Heart: RRR Respiratory: normal chest expansion Gastrointestinal: non-distended Extremities: no cyanosis, no clubbing Hosp A/P (1) Anoxic brain injury Status: Acute (2) Cardiac arrest Code(s): I46.9 - CARDIAC ARREST, CAUSE UNSPECIFIED Status: Acute (3) Acute respiratory failure with hypoxia Code(s): J96.01 - ACUTE RESPIRATORY FAILURE WITH HYPOXIA Status: Acute (4) DKA (diabetic ketoacidoses) Code(s): E11.10 - TYPE 2 DIABETES MELLITUS WITH KETOACIDOSIS WITHOUT COMA Status: Acute (5) High anion gap metabolic acidosis Code(s): E87.2 - ACIDOSIS Status: Acute (6) Hypertensive urgency Code(s): I16.0 - HYPERTENSIVE URGENCY Status: Acute (7) Hypernatremia Code(s): E87.0 - HYPEROSMOLALITY AND HYPERNATREMIA Status: Acute (8) JENNIFFER (acute kidney injury) Code(s): N17.9 - ACUTE KIDNEY FAILURE, UNSPECIFIED Status: Acute - Plan Mechanical ventilation management per critical care team. Acidosis resolved with ventilation and DKA protocol. Nicardipine drip is on hold as his pressures are improving. On sc lantus and SSI. Tube feeding will be initiated. EEG showing severe non specific generalized cerebral slowing. JENNIFFER worsening likely due to ATN after cardiac arrest. On IVF.
[2019-06-21] MEDS ORDERED: Furosemide 40 MG/4 ML VIAL SLOW IVP SCH ×2 (14:45→20:00)
[2019-06-21 15:43] LABS: Vancomycin, Random 19.5 ug/mL (See Comment)
--- NOTE | 2019-06-21 16:48 | PRG ---
DATE OF SERVICE: 06/21/2019 SUBJECTIVE: Roge Gómez has had no neurological improvement that is meaningful. EEG shows low amplitude generalized theta activity. No reaction to stimulation and absence of posterior background rhythm. He does not follow commands. He then respond to sternal rub. He does get tachypneic when his sedation is held. He becomes very hypertensive. OBJECTIVE: VITAL SIGNS: Heart rates in the 80s, blood pressure 162/103, respiratory rate 20. LUNGS: Otherwise unchanged. HEART: Otherwise unchanged. ABDOMEN: Otherwise unchanged. IMAGING: Chest x-ray shows cardiomegaly, haziness at the left base, right hilar fullness. LABORATORY DATA: White count 11.5, hemoglobin 13.1, platelets 151. Sodium 148, potassium 4.2, chloride 117, bicarb 19, BUN 36, creatinine 2.78. IMPRESSION: 1. Anoxic brain injury secondary to an [id number]-aemlneqy arrest. 2. Progressive renal dysfunction secondary to an kte-lw-azlnotup arrest on top of pre-existing kidney disease likely from diabetes. 3. Diabetes. 4. Obesity. 5. History of medical noncompliance per the family. He needs to be supportive for another 24 hours. If we see no meaningful neurological improvement, we need to consider withdrawal of care versus early tracheostomy and PEG. CRITICAL CARE TIME: 30 minutes. Job ID: [id number]
--- NOTE | 2019-06-21 17:35 | PDOC.CPN ---
- Subjective Date: 06/21/19 Time: 17:34 Interval history: Remains unresponsive on the vent. - Review of Systems ROS unobtainable: due to endotracheal tube - Objective Allergies/Adverse Reactions: Allergies Allergy/AdvReac Type Severity Reaction Status Date / Time No Allergy Information Allergy Verified 06/19/19 04:43 Available Visit Medications: Current Medications Acetaminophen (Tylenol) 650 mg PO Q4H PRN PRN Reason: Headache/Fever/Mild Pain (1-3) Hydrocodone Bitart/Acetaminophen ([place] 5/325) 1 tab PO Q4H PRN PRN Reason: Moderate Pain (4-6) Albuterol/Ipratropium (Duoneb) 3 ml NEB [id number] PRN PRN Reason: SOB &/or Wheezing Albuterol/Ipratropium (Duoneb) 3 ml NEB [id number] [facility] Last Admin: 06/21/19 13:51 Dose: 3 ml Aspirin (Aspirin) 300 mg [place] DAILY [facility] Last Admin: 06/21/19 08:32 Dose: 300 mg Bisacodyl (Dulcolax) 10 mg PO DAILYPRN PRN PRN Reason: Constipation Clonidine (Catapres) 0.1 mg PO BID PRN PRN Reason: SBP > 160 use second Dextrose/Water (Dextrose 50%) 25 gm SLOW IVP PRN PRN PRN Reason: Hypoglycemia Dextrose/Water (Dextrose 50%) 25 gm SLOW IVP ONE PRN PRN Reason: HYPOGLYCEMIA PROTOCOL Stop: 06/26/19 12:30 Enoxaparin Sodium (Lovenox) 40 mg SC 0900 [facility] Last Admin: 06/21/19 08:32 Dose: 40 mg Famotidine (Pepcid) 20 mg SLOW IVP BID [facility] Last Admin: 06/21/19 08:32 Dose: 20 mg Furosemide (Lasix) 40 mg SLOW IVP 1999 [facility] Stop: 06/21/19 22:00 Furosemide (Lasix) 40 mg SLOW IVP BID [facility] Glucagon (Glucagon) 1 mg IM PRN PRN PRN Reason: Hypoglycemia Hydralazine HCl (Apresoline) 10 mg SLOW IVP Q6H PRN PRN Reason: SBP GREATER THAN 160 Promethazine HCl 12.5 mg/ (Sodium Chloride) 50.5 mls @ 202 mls/hr IVPB Q6H PRN PRN Reason: Nausea/vomiting use second Piperacillin Sod/Tazobactam (Sod 3.375 gm/ Sodium Chloride) 100 mls @ 200 mls/ hr IVPB Q6HR [facility] Last Admin: 06/21/19 12:17 Dose: 100 mls Potassium Chloride 40 meq/ (Sodium Chloride) 270 mls @ 135 mls/hr IVPB ASDIR PRN PRN Reason: FOR SERUM K+ 2.5 - 3.5 Potassium Chloride 40 meq/ (Device) 100 mls @ 50 mls/hr IVPB ASDIR PRN PRN Reason: FOR SERUM K+ 2.5 - 3.5 Last Admin: 06/19/19 09:32 Dose: 100 mls Magnesium Sulfate 1 gm/ Sodium (Chloride) 102 mls @ 102 mls/hr IV PRN PRN PRN Reason: MAG LEVEL 1.4 - 2.0 Magnesium Sulfate 2 gm/ Device 50 mls @ 50 mls/hr IVPB ASDIR PRN PRN Reason: MAGNESIUM < 1.4 Potassium Phosphate 9 mmol/ (Sodium Chloride) 103 mls @ 25.75 mls/hr IVPB ASDIR PRN PRN Reason: Phosphate 1.0-1.8 Potassium Phosphate 12 mmol/ (Sodium Chloride) 254 mls @ 63.5 mls/hr IV ASDIR PRN PRN Reason: Serum phosphate 0.5-0.9 Potassium Phosphate 15 mmol/ (Sodium Chloride) 255 mls @ 63.75 mls/hr IV ASDIR PRN PRN Reason: Serum Phos < 0.5 Fentanyl Citrate 2,000 mcg/ (Sodium Chloride) 100 mls @ 0 mls/hr IV INF SHARMILA; Protocol Stop: 07/19/19 02:19 Last Admin: 06/21/19 02:37 Dose: 100 mls Fentanyl Citrate (Fentanyl Bolus) 250 mls @ 0 mls/hr IVPB PRN PRN PRN Reason: Breakthrough pain/agitation Stop: 07/19/19 02:19 Nicardipine HCl 25 mg/ Sodium (Chloride) 250 mls @ 0 mls/hr IVPB INF SHARMILA; Protocol Last Admin: 06/21/19 13:50 Dose: 250 mls Dextrose/Water (D5w) 1,000 mls @ 0 mls/hr IV INF PRN PRN Reason: HYPOGLYCEMIA PROTOCOL Insulin Glargine 20 units/ (Miscellaneous Medication) 0.2 mls @ 0 mls/hr SC QAM [facility] Sodium Chloride (1/2 Normal Saline) 1,000 mls @ 100 mls/hr IV .Q10H [facility] Last Admin: 06/21/19 10:00 Dose: 1,000 mls Vancomycin HCl 1.25 gm/ Sodium (Chloride) 250 mls @ 166.667 mls/hr IVPB 0600, 1800 [facility] Insulin Human Lispro (Humalog) 0 units SC .MODERATE SLIDING SC PRN; Protocol PRN Reason: MODERATE SLIDING SCALE Last Admin: 06/21/19 12:35 Dose: 4 unit Labetalol HCl (Normodyne) 20 mg SLOW IVP Q4H PRN PRN Reason: SBP > 160 use third Last Admin: 06/21/19 13:20 Dose: 20 mg Lorazepam (Ativan) 2 mg SLOW IVP Q1H PRN PRN Reason: Breakthrough agitation Stop: 07/19/19 02:19 Last Admin: 06/21/19 02:53 Dose: 2 mg Magnesium Oxide (Magnesium Oxide) 400 mg PO BIDPRN PRN PRN Reason: FOR SERUM MAG 1.4 - 2.0 Magnesium Oxide (Magnesium Oxide) 800 mg PO PRN PRN PRN Reason: FOR SERUM MAG < 1.4 Methylprednisolone Sodium Succinate (Solu-Medrol) 40 mg IVP Q6HR [facility] Last Admin: 06/21/19 12:23 Dose: 40 mg Metoprolol Tartrate (Lopressor) 5 mg IVP 0400,1000,1600,2200 [facility] Last Admin: 06/21/19 15:32 Dose: 5 mg Miscellaneous Medication (Pharmacy To Dose) 1 each IVPB PRN PRN PRN Reason: Pharmacy to dose Miscellaneous Medication (Phos-Nak) 1 pkt PO TIDPRN PRN PRN Reason: FOR PHOS LEVEL 1.0 - 1.8 Miscellaneous Medication (Phos-Nak) 2 pkt PO TIDPRN PRN PRN Reason: FOR PHOS LEVEL 0.5 - 1.0 Morphine Sulfate (Morphine) 2 mg SLOW IVP Q4H PRN PRN Reason: severe pain 4-10 Morphine Sulfate (Morphine) 2 mg SLOW IVP Q1H PRN PRN Reason: BREAKTHROUGH PAIN/Agitation Stop: 07/19/19 02:19 Ccu Electrolyte (Replacement Protocol) 0 each FS PRN PRN PRN Reason: FOR ELECTROLYTE REPLACEMENT Discontinue Previous Narcotic Pain Medications And Benzodiazepines 1 each FS .ONE [facility]ARMILA Stop: 07/19/19 02:19 Ondansetron HCl (Zofran) 4 mg IVP Q6H PRN PRN Reason: Nausea/Vomiting use 1st Potassium Chloride (K-Dur) 40 meq PO ASDIR PRN PRN Reason: FOR SERUM K+ 2.5 - 3.5 Potassium Chloride (Klor-Con) 40 meq PER TUBE ASDIR PRN PRN Reason: FOR SERUM K+ 2.5-3.5 Propofol (Diprivan) 1,000 mg IV INF PRN; Protocol PRN Reason: TO ACHIEVE GOAL RASS Stop: 07/19/19 02:19 Last Admin: 06/21/19 15:32 Dose: 1,000 mg Propofol (Diprivan Bolus) 20 mg IV Q5MIN PRN PRN Reason: BREAKTHROUGH AGITATION Stop: 07/19/19 02:19 Senna/Docusate Sodium (Senokot S) 2 tab PO BID PRN PRN Reason: Constipation Sodium Chloride (Flush - Normal Saline) 10 ml IVF PRN PRN PRN Reason: Saline Flush Vecuronium [place] (Norcuron) 10 mg IV Q30MIN PRN PRN Reason: SHIVERING Last Admin: 06/21/19 10:28 Dose: 10 mg Vital Signs & Weight: Vital Signs Temp Pulse Resp BP Pulse Ox 06/21/19 16:00 20 06/21/19 15:00 98.7 F 06/21/19 14:00 20 06/21/19 13:51 81 06/21/19 13:20 85 179/121 H 06/21/19 12:00 98.4 F 20 06/21/19 11:50 93 L 06/21/19 10:58 77 151/106 H 06/21/19 10:00 21 H 06/21/19 08:04 63 06/21/19 08:00 20 06/21/19 07:59 100 06/21/19 07:00 97.4 F L 06/21/19 06:00 20 Admit Weight 322 lb Weight 331 lb 2.149 oz - Physical Exam General: other (Intubated.) HEENT: mucus membranes moist Neck: supple neck Lungs: clear to auscultation Abdomen: active bowel sounds Extremities: 1+ LE edema Skin: clear Musculoskeletal: no pain - Labs Result Diagrams: 06/21/19 04:07 06/21/19 04:07 Troponin/CKMB Troponin I 0.388 ng/mL (< 0.028) H* 06/19/19 08:14 - Telemetry Sinus rhythms and dysrhythmias: sinus rhythm - Assessment/Plan Assessment/Plan: 1. Out of hospital cardiac arrest. 2. PEA Arrest 3. Flash pulmonary edema. 4. RLL infiltrate improving with diuresis, likely related more to edema. 5. Substance abuse. 6. Anoxic brain injury, unknown extent of injury at this point. 7. Dilated Cardiomyopathy EF at 40-45%, 8. NSTEMI, Type 2 OR, demand ischemia. PLAN: - IV lasix, fluid up today. - Continue IV BB. - Reduced EF has apparently been his baseline in the past. - Poor prognosis given no significant neurological recovery in last 48 hrs
[2019-06-21] MEDS: Vancomycin HCl 1.25 GM in Sodium Chloride 0.9% 250 ML 250 ML IVPB SCH (17:58)
[2019-06-22] MEDS: Propofol 1,000 MG/100 ML VIAL IV PRN ×5 (02:20→19:44)
[2019-06-22 04:26] LABS: Anion Gap 18 mmol/L (10-20); BUN (Urea Nitrogen) 61 mg/dL (8.9-20.6); Calc. Creatinine Clearance 57 mL/min (70-130); Calcium 7.2 mg/dL (7.8-10.44); Carbon Dioxide 18 mmol/L (22-29); Chloride 114 mmol/L (98-107); Estimated GFR-MDRD 18; Glucose 292 mg/dL (70-105); Potassium 4.6 mmol/L (3.5-5.1); Sodium 145 mmol/L (136-145)
[2019-06-22 04:36] LABS: Band 8 % (5-11); Hemoglobin 13.2 g/dL (14.0-18.0); Lymphocytes 3 % (21-51); MDiff Complete? YES; Mean Corpuscular HGB CONC 31.7 g/dL (32.0-36.0); Mean Corpuscular Hemoglobin 29.7 pg (27.0-31.0); Mean Corpuscular Volume 93.7 fL (78.0-98.0); Mean Platelet Volume 8.6 fL (7.4-10.4); Neutrophil 89 % (42-75); Platelet Count 157 thou/uL (130-400); Platelet Morphology Comment Appears Adequate; RBC Distribution Width 14.1 % (11.5-14.5); RBC Morphology Normal; Red Blood Cell (RBC) Count 4.45 mill/uL (4.70-6.10); White Blood Cell (WBC) Count 10.9 thou/uL (4.8-10.8)
[2019-06-22] MEDS: Metoprolol Tartrate 5 MG/5 ML VIAL IVP SCH ×4 (04:36→21:41)
[2019-06-22] MEDS: HumaLOG 300 UNITS/3 ML VIAL SC PRN ×4 (05:40→23:53)
[2019-06-22] MEDS: methylPREDNISolone Sod Succ 40 MG VIAL IVP SCH ×4 (05:44→23:56)
[2019-06-22] MEDS: Piperacillin/Tazobactam 3.375 GM in Sodium Chloride 0.9% 100 ML IVPB SCH ×4 (05:44→23:56)
[2019-06-22] MEDS: Sodium Chloride 0.45% 1,000 ML IV SCH ×2 (05:44→14:57)
[2019-06-22] MEDS: Vancomycin HCl 1.25 GM in Sodium Chloride 0.9% 250 ML 250 ML IVPB SCH ×2 (05:44→18:14)
[2019-06-22 07:46] LABS: Actual Bicarbonate (HCO3a) 16.1 mEq/L (22-28); Base Excess (BEa) -9.6 mEq/L (-2.0 to +3.0); CO2 Tension 34.9 mmHg (35.0-45.0); Calcium, Ionized 0.96 mmol/L (1.12-1.30); Carboxyhemoglobin (COHb) 0.6 gm% (0.0-3.0); Hemoglobin (Hb) 13.1 g/dL (14.0-18.0); O2 Tension (PaO2), arterial 74.6 mmHg (80.0-100.0); Potassium - ABG Lab 4.69 mmol/L (3.70-5.30); pH, Arterial 7.28 (7.35-7.45)
[2019-06-22 07:47] LABS: ALV-art Gradient 238.275 (0-20); Puncture Site RRA
--- NOTE | 2019-06-22 08:03 | RAD ---
Exam: Chest one view HISTORY:Respiratory distress. Ventilated patient. Comparison: 06/21/2019 FINDINGS: Lines and tubes: Stable endotracheal and nasogastric tube. Cardiac silhouette:Cardiomegaly. Aorta: Unremarkable Pulmonary vessels: Normal Costophrenic angles: Persistent opacification of the left hemidiaphragm and left hemithorax due to pl eural effusion. LUNGS: Persistent bilateral parenchymal opacities, left greater than right. Pneumothorax: None Osseous abnormalities: None IMPRESSION: No significant interval change.
[2019-06-22] MEDS ORDERED: Furosemide 40 MG/4 ML VIAL SLOW IVP SCH (09:00)
[2019-06-22] MEDS: Famotidine/PF 20 mg/2ml Vial SLOW IVP SCH ×2 (09:17→21:39)
[2019-06-22] MEDS: Aspirin 300 MG Suppository PR SCH (09:17)
[2019-06-22] MEDS: Enoxaparin Sodium 40 MG/0.4 ML SYRINGE SC SCH (09:17)
[2019-06-22] MEDS: Insulin Glargine 20 UNITS in Pre-Filled Syringe 1 EACH SC SCH (09:17)
--- NOTE | 2019-06-22 09:28 | EKG ---
Test Reason : STAT Blood Pressure : / mmHG Vent. Rate : 140 BPM Atrial Rate : 280 BPM P-R Int : 000 ms QRS Dur : 110 ms QT Int : 298 ms P-R-T Axes : 062 -15 197 degrees QTc Int : 454 ms Atrial flutter with 2:1 A-V conduction Minimal voltage criteria for LVH, may be normal variant Anteroseptal infarct , age undetermined Abnormal ECG No previous ECGs available Confirmed by DR. Toya GARSIA ([id number]) on 06/22/2019 9:28:09 AM Referred By: CARLITOS Confirmed By:DR. Toya GARSIA
--- NOTE | 2019-06-22 09:44 | PRG ---
DATE OF SERVICE: 06/22/2019 OBJECTIVE: VITAL SIGNS: Heart rate in the 60s, blood pressure 119/78, respiratory rate as per mechanical ventilation. LUNGS: Clear. HEART: Regular rhythm. ABDOMEN: Soft. LABORATORY DATA: White count 10.9, hemoglobin 13.2, platelets 157. Sodium 145, potassium 4.6, chloride 114, bicarb 18, BUN 61, creatinine 3.73. PH 7.28, CO2 of 34, PO2 of 74. IMPRESSION: 1. Anoxic injury after an pcd-rj-xrtimddn arrest. 2. Progressive renal dysfunction, likely on top of chronic kidney disease secondary to diabetes. 3. Pulmonary edema, ? aspiration pneumonitis, unchanged on today's chest radiograph. 4. Obesity. 5. History of medical noncompliance according to family. His prognosis for functional recovery is close to zero at this point. Decisions need to be made regarding code status. Duration of mechanical ventilation versus tracheostomy needs to be decided on as well. Critical care time 30 min. Job ID: [id number] MTDD
--- NOTE | 2019-06-22 11:18 | PDOC.PALCO ---
Palliative Care Consult - Consult Details Requesting Physician: Dr Guevara Reason for Consult: assistance with communication prognosis/disease, family support - Pertinent HPI 43 year old male who initially presented to [facility] emergency room with cardiac arrest by EMS. EMS was called to a motel where Mr Gómez resides secondary to respiratory distress/pulselessness. CPR initiated in field and obtained ROSC, intubated and transported to [facility] emergency room. Transferred tp [facility] for higher level of care. Concern is for anoxic brain injury paired with known cardiomyopathy, and non compliant with multiple morbidities. - Pertinent PMH Cardiomyopathy, DM II, HTN, Polysubstance abuse - Social History Alcohol Use: other (As per family alcohol use) Drug Use History: other (As per family known drug history) Living Situation: other (Currently resides in a motel) - Allergies Allergies/Adverse Reactions: Allergies Allergy/AdvReac Type Severity Reaction Status Date / Time No Allergy Information Allergy Verified 06/19/19 04:43 Available - Subjective Mechanically intubated, sedated, non responsive to gentle stimuli. - ROS Non Response: due to endotracheal tube, due to mental status - Objective Vital Signs: Vital Signs - Most Recent Temp Pulse Resp BP Pulse Ox 99.2 F 67 24 H 179/121 H 99 06/22/19 08:00 06/22/19 10:28 06/22/19 08:00 06/21/19 13:20 06/22/19 00:25 Palliative Performance Scale: 20 - Physical Exam Constitutional: encephalitic, ill appearing HEENT: EOMI, moist MMs, sclera anicteric Respiratory: clear to auscultation bilateral, diminished lung sound Deviation from normal: Mechanical ventilation Deviation from normal: Distant heart sounds Gastrointestinal: soft, no distention, incontinent Genitourinary: daigle catheter Musculoskeletal: no cyanosis, edema present Deviation from normal: Sedated Skin: cap refill <2 seconds Deviation from normal: sedated, encephalopathic - Problem List (1) Palliative care encounter Code(s): Z51.5 - ENCOUNTER FOR PALLIATIVE CARE Current Visit: Yes Status: Acute (2) JENNIFFER (acute kidney injury) Code(s): N17.9 - ACUTE KIDNEY FAILURE, UNSPECIFIED Current Visit: Yes Status : Acute (3) Acute respiratory failure with hypoxia Code(s): J96.01 - ACUTE RESPIRATORY FAILURE WITH HYPOXIA Current Visit: Yes Status: Acute (4) Anoxic brain injury Current Visit: Yes Status: Acute (5) Cardiac arrest Code(s): I46.9 - CARDIAC ARREST, CAUSE UNSPECIFIED Current Visit: Yes Status : Acute - Plan/Recommendations Plan: Communicating with Dr Guevara in relation to plan for patient, and goal of care. Currently Palliative Care is offering family support as it is hopeful to see what progress is made over the next days toward meaning full recovery. Point of contact is patient mother Sanaz Pablo [phone]/Communicated with mother 06/22/2019 Patient has two siblings, sisters. One lives in [place] and the other in a senior care in [place] as per mom. Offered mother emotional support. Tyron Martino RN also communicated with mother and placed phone to patient ear so she could "talk to him". Ms Pablo was offered to come to the hospital or video call , she elected to have audio only. [50] minutes spent on this encounter with >50% of the time in counseling and coordination of care. Thank you for this very appropriate consult.
--- NOTE | 2019-06-22 13:46 | PDOC.HOSPP ---
- Subjective Encounter Date: 06/22/19 Subjective: Remains intubated. - Objective Vital Signs & Weight: Vital Signs (12 hours) Temp Pulse Resp 06/22/19 12:49 66 06/22/19 10:28 67 06/22/19 08:00 99.2 F 24 H 06/22/19 07:43 68 06/22/19 06:00 20 06/22/19 04:00 98.4 F 21 H 06/22/19 02:36 69 06/22/19 02:00 20 Weight Admit Weight 322 lb Weight 339 lb 1.135 oz Most Recent Monitor Data Heart Rate from ECG 68 NIBP 120/80 NIBP BP-Mean 93 Respiration from ECG 24 SpO2 97 I&O: 06/21/19 06/22/19 06/23/19 06:59 06:59 06:59 Intake Total 5869.1 4831.8 80 Output Total 756 1297 207 Balance 5113.1 3534.8 -127 Result Diagrams: 06/22/19 03:57 06/22/19 03:30 Additional Labs: Accuchecks 06/22/19 06/22/19 06/21/19 12:27 05:44 23:50 POC Glucose 352 H 292 H 237 H 06/21/19 17:54 POC Glucose 244 H Hospitalist ROS - Medication Medications: Active Medications Generic Name Dose Route Start Last Admin Trade Name Freq PRN Reason Stop Dose Admin Albuterol/Ipratropium 3 ml 06/19/19 07:00 06/22/19 12:48 Duoneb NEB 3 ml [id number] SHARMILA Administration Aspirin 300 mg 06/19/19 09:00 06/22/19 09:17 Aspirin NE 300 mg DAILY SHARMILA Administration Enoxaparin Sodium 40 mg 06/19/19 09:00 06/22/19 09:17 Lovenox SC 40 mg 0900 SHARMILA Administration Famotidine 20 mg 06/19/19 21:00 06/22/19 09:17 Pepcid SLOW IVP 20 mg BID SHARMILA Administration Piperacillin Sod/Tazobactam 100 mls @ 200 mls/hr 06/19/19 06:00 06/22/19 12: 12 Sod 3.375 gm/ Sodium Chloride IVPB 100 mls Q6HR SHARMILA Administration Potassium Chloride 40 meq/ 100 mls @ 50 mls/hr 06/19/19 02:18 06/19/19 09:32 Device IVPB 100 mls ASDIR PRN Administration FOR SERUM K+ 2.5 - 3.5 Fentanyl Citrate 2,000 mcg/ 100 mls @ 0 mls/hr 06/19/19 02:19 06/21/19 21:10 Sodium Chloride IV 07/19/19 02:19 100 mls INF SHARMILA Administration Protocol Per Protocol Nicardipine HCl 25 mg/ Sodium 250 mls @ 0 mls/hr 06/19/19 03:30 06/21/19 13: 50 Chloride IVPB 250 mls INF SHARMILA Administration Protocol Titrate Insulin Glargine 20 units/ 0.2 mls @ 0 mls/hr 06/22/19 09:00 06/22/19 09:17 Miscellaneous Medication SC 0.2 mls QAM SHARMILA Administration Sodium Chloride 1,000 mls @ 100 mls/hr 06/21/19 09:45 06/22/19 05:44 1/2 Normal Saline IV 1,000 mls .Q10H SHARMILA Administration Vancomycin HCl 1.25 gm/ Sodium 250 mls @ 166.667 mls/hr 06/21/19 18:00 05:44 Chloride IVPB 250 mls 0600,1800 SHARMILA Administration Insulin Human Lispro 0 units 06/21/19 09:36 06/22/19 12:33 Humalog SC 10 unit .MODERATE SLIDING SC PRN Administration MODERATE SLIDING SCALE Protocol Labetalol HCl 20 mg 06/19/19 02:07 06/21/19 13:20 Normodyne SLOW IVP 20 mg Q4H PRN Administration SBP > 160 use third Lorazepam 2 mg 06/19/19 02:19 06/21/19 21:19 Ativan SLOW IVP 07/19/19 02:19 2 mg Q1H PRN Administration Breakthrough agitation Methylprednisolone Sodium Succinate 40 mg 06/19/19 12:00 06/22/19 12:13 Solu-Medrol IVP 40 mg Q6HR SHARMILA Administration Metoprolol Tartrate 5 mg 06/19/19 16:00 06/22/19 10:30 Lopressor IVP 5 mg 0400,1000,1600,2200 SHARMILA Administration Propofol 1,000 mg 06/19/19 02:19 06/22/19 10:15 Diprivan IV 07/19/19 02:19 1,000 mg INF PRN Administration TO ACHIEVE GOAL RASS Protocol Vecuronium [place] 10 mg 06/19/19 07:30 06/21/19 21:49 Norcuron IV 10 mg Q30MIN PRN Administration SHIVERING - Exam ENT: normocephalic atraumatic Heart: RRR Respiratory: normal chest expansion, no tachypnea Gastrointestinal: soft Extremities: no cyanosis, no clubbing Hosp A/P (1) Anoxic brain injury Status: Acute (2) Cardiac arrest Code(s): I46.9 - CARDIAC ARREST, CAUSE UNSPECIFIED Status: Acute (3) Acute respiratory failure with hypoxia Code(s): J96.01 - ACUTE RESPIRATORY FAILURE WITH HYPOXIA Status: Acute (4) DKA (diabetic ketoacidoses) Code(s): E11.10 - TYPE 2 DIABETES MELLITUS WITH KETOACIDOSIS WITHOUT COMA Status: Acute (5) High anion gap metabolic acidosis Code(s): E87.2 - ACIDOSIS Status: Acute (6) Hypertensive urgency Code(s): I16.0 - HYPERTENSIVE URGENCY Status: Acute (7) Hypernatremia Code(s): E87.0 - HYPEROSMOLALITY AND HYPERNATREMIA Status: Acute (8) JENNIFFER (acute kidney injury) Code(s): N17.9 - ACUTE KIDNEY FAILURE, UNSPECIFIED Status: Acute - Plan 06/20: Mechanical ventilation management per critical care team. Acidosis resolved with ventilation and DKA protocol. Nicardipine drip is on hold as his pressures are improving. On sc lantus and SSI. Tube feeding will be initiated. EEG showing severe non specific generalized cerebral slowing. JENNIFFER worsening likely due to ATN after cardiac arrest. On IVF. 06/21: Volume overloaded now on lasix. Creatinine level worsening. Anoxic brain injury. Prognosis is guarded. Palliative care team arranging family meeting soon. Femoral culture showing coag negative staph and corynobacteria in 1/2 bottles likely a contaminant.
[2019-06-22] MEDS: fentaNYL Citrate/PF 2,000 MCG in Sodium Chloride 0.9% 60 ML IV SCH (16:17)
--- NOTE | 2019-06-22 16:27 | PDOC.CPN ---
- Subjective Date: 06/22/19 Time: 16:25 Interval history: No nw issues. Remains intubated sedated. Of sedation no purposeful movement, he postures and BP increases. - Review of Systems ROS unobtainable: due to endotracheal tube - Objective Allergies/Adverse Reactions: Allergies Allergy/AdvReac Type Severity Reaction Status Date / Time No Allergy Information Allergy Verified 06/19/19 04:43 Available Visit Medications: Current Medications Acetaminophen (Tylenol) 650 mg PO Q4H PRN PRN Reason: Headache/Fever/Mild Pain (1-3) Hydrocodone Bitart/Acetaminophen ([place] 5/325) 1 tab PO Q4H PRN PRN Reason: Moderate Pain (4-6) Albuterol/Ipratropium (Duoneb) 3 ml NEB [id number] PRN PRN Reason: SOB &/or Wheezing Albuterol/Ipratropium (Duoneb) 3 ml NEB [id number] [facility] Last Admin: 06/22/19 12:48 Dose: 3 ml Aspirin (Aspirin) 300 mg [place] DAILY [facility] Last Admin: 06/22/19 09:17 Dose: 300 mg Bisacodyl (Dulcolax) 10 mg PO DAILYPRN PRN PRN Reason: Constipation Clonidine (Catapres) 0.1 mg PO BID PRN PRN Reason: SBP > 160 use second Dextrose/Water (Dextrose 50%) 25 gm SLOW IVP PRN PRN PRN Reason: Hypoglycemia Dextrose/Water (Dextrose 50%) 25 gm SLOW IVP ONE PRN PRN Reason: HYPOGLYCEMIA PROTOCOL Stop: 06/26/19 12:30 Enoxaparin Sodium (Lovenox) 40 mg SC 0900 [facility] Last Admin: 06/22/19 09:17 Dose: 40 mg Famotidine (Pepcid) 20 mg SLOW IVP BID [facility] Last Admin: 06/22/19 09:17 Dose: 20 mg Glucagon (Glucagon) 1 mg IM PRN PRN PRN Reason: Hypoglycemia Hydralazine HCl (Apresoline) 10 mg SLOW IVP Q6H PRN PRN Reason: SBP GREATER THAN 160 Promethazine HCl 12.5 mg/ (Sodium Chloride) 50.5 mls @ 202 mls/hr IVPB Q6H PRN PRN Reason: Nausea/vomiting use second Piperacillin Sod/Tazobactam (Sod 3.375 gm/ Sodium Chloride) 100 mls @ 200 mls/ hr IVPB Q6HR SHARMILA Last Admin: 06/22/19 12:12 Dose: 100 mls Potassium Chloride 40 meq/ (Sodium Chloride) 270 mls @ 135 mls/hr IVPB ASDIR PRN PRN Reason: FOR SERUM K+ 2.5 - 3.5 Potassium Chloride 40 meq/ (Device) 100 mls @ 50 mls/hr IVPB ASDIR PRN PRN Reason: FOR SERUM K+ 2.5 - 3.5 Last Admin: 06/19/19 09:32 Dose: 100 mls Magnesium Sulfate 1 gm/ Sodium (Chloride) 102 mls @ 102 mls/hr IV PRN PRN PRN Reason: MAG LEVEL 1.4 - 2.0 Magnesium Sulfate 2 gm/ Device 50 mls @ 50 mls/hr IVPB ASDIR PRN PRN Reason: MAGNESIUM < 1.4 Potassium Phosphate 9 mmol/ (Sodium Chloride) 103 mls @ 25.75 mls/hr IVPB ASDIR PRN PRN Reason: Phosphate 1.0-1.8 Potassium Phosphate 12 mmol/ (Sodium Chloride) 254 mls @ 63.5 mls/hr IV ASDIR PRN PRN Reason: Serum phosphate 0.5-0.9 Potassium Phosphate 15 mmol/ (Sodium Chloride) 255 mls @ 63.75 mls/hr IV ASDIR PRN PRN Reason: Serum Phos < 0.5 Fentanyl Citrate 2,000 mcg/ (Sodium Chloride) 100 mls @ 0 mls/hr IV INF SHARMILA; Protocol Stop: 07/19/19 02:19 Last Admin: 06/22/19 16:17 Dose: 100 mls Fentanyl Citrate (Fentanyl Bolus) 250 mls @ 0 mls/hr IVPB PRN PRN PRN Reason: Breakthrough pain/agitation Stop: 07/19/19 02:19 Nicardipine HCl 25 mg/ Sodium (Chloride) 250 mls @ 0 mls/hr IVPB INF SHARMILA; Protocol Last Admin: 06/21/19 13:50 Dose: 250 mls Dextrose/Water (D5w) 1,000 mls @ 0 mls/hr IV INF PRN PRN Reason: HYPOGLYCEMIA PROTOCOL Insulin Glargine 20 units/ (Miscellaneous Medication) 0.2 mls @ 0 mls/[facility] [place] Last Admin: 06/22/19 09:17 Dose: 0.2 mls Vancomycin HCl 1.25 gm/ Sodium (Chloride) 250 mls @ 166.667 mls/hr IVPB 0600, 1800 [facility] Last Admin: 06/22/19 05:44 Dose: 250 mls Insulin Human Lispro (Humalog) 0 units SC .MODERATE SLIDING SC PRN; Protocol PRN Reason: MODERATE SLIDING SCALE Last Admin: 06/22/19 12:33 Dose: 10 unit Labetalol HCl (Normodyne) 20 mg SLOW IVP Q4H PRN PRN Reason: SBP > 160 use third Last Admin: 06/21/19 13:20 Dose: 20 mg Lorazepam (Ativan) 2 mg SLOW IVP Q1H PRN PRN Reason: Breakthrough agitation Stop: 07/19/19 02:19 Last Admin: 06/21/19 21:19 Dose: 2 mg Magnesium Oxide (Magnesium Oxide) 400 mg PO BIDPRN PRN PRN Reason: FOR SERUM MAG 1.4 - 2.0 Magnesium Oxide (Magnesium Oxide) 800 mg PO PRN PRN PRN Reason: FOR SERUM MAG < 1.4 Methylprednisolone Sodium Succinate (Solu-Medrol) 40 mg IVP Q6HR [facility] Last Admin: 06/22/19 12:13 Dose: 40 mg Metoprolol Tartrate (Lopressor) 5 mg IVP 0400,1000,1600,2200 [facility] Last Admin: 06/22/19 16:20 Dose: Not Given Miscellaneous Medication (Pharmacy To Dose) 1 each IVPB PRN PRN PRN Reason: Pharmacy to dose Miscellaneous Medication (Phos-Nak) 1 pkt PO TIDPRN PRN PRN Reason: FOR PHOS LEVEL 1.0 - 1.8 Miscellaneous Medication (Phos-Nak) 2 pkt PO TIDPRN PRN PRN Reason: FOR PHOS LEVEL 0.5 - 1.0 Morphine Sulfate (Morphine) 2 mg SLOW IVP Q4H PRN PRN Reason: severe pain 4-10 Morphine Sulfate (Morphine) 2 mg SLOW IVP Q1H PRN PRN Reason: BREAKTHROUGH PAIN/Agitation Stop: 07/19/19 02:19 Ccu Electrolyte (Replacement Protocol) 0 each FS PRN PRN PRN Reason: FOR ELECTROLYTE REPLACEMENT Discontinue Previous Narcotic Pain Medications And Benzodiazepines 1 each FS .ONE [facility] Stop: 07/19/19 02:19 Ondansetron HCl (Zofran) 4 mg IVP Q6H PRN PRN Reason: Nausea/Vomiting use 1st Potassium Chloride (K-Dur) 40 meq PO ASDIR PRN PRN Reason: FOR SERUM K+ 2.5 - 3.5 Potassium Chloride (Klor-Con) 40 meq PER TUBE ASDIR PRN PRN Reason: FOR SERUM K+ 2.5-3.5 Propofol (Diprivan) 1,000 mg IV INF PRN; Protocol PRN Reason: TO ACHIEVE GOAL RASS Stop: 07/19/19 02:19 Last Admin: 06/22/19 15:23 Dose: 1,000 mg Propofol (Diprivan Bolus) 20 mg IV Q5MIN PRN PRN Reason: BREAKTHROUGH AGITATION Stop: 07/19/19 02:19 Senna/Docusate Sodium (Senokot S) 2 tab PO BID PRN PRN Reason: Constipation Sodium Chloride (Flush - Normal Saline) 10 ml IVF PRN PRN PRN Reason: Saline Flush Vecuronium [place] (Norcuron) 10 mg IV Q30MIN PRN PRN Reason: SHIVERING Last Admin: 06/21/19 21:49 Dose: 10 mg Vital Signs & Weight: Vital Signs Temp Pulse Resp 06/22/19 15:08 70 06/22/19 12:49 66 06/22/19 12:00 99.0 F 06/22/19 10:28 67 06/22/19 08:00 99.2 F 24 H 06/22/19 07:43 68 06/22/19 06:00 20 Admit Weight 322 lb Weight 339 lb 1.135 oz - Physical Exam General: other (S/I) HEENT: mucus membranes moist Neck: supple neck Cardiac: regular rate and rhythm Lungs: clear to auscultation Neuro: other (Unresponsive.) Abdomen: active bowel sounds Extremities: no edema Skin: clear Musculoskeletal: normal range of motion - Labs Result Diagrams: 06/22/19 03:57 06/22/19 03:30 Troponin/CKMB Troponin I 0.388 ng/mL (< 0.028) H* 06/19/19 08:14 - Telemetry Sinus rhythms and dysrhythmias: sinus rhythm - Assessment/Plan Assessment/Plan: 1. Out of hospital cardiac arrest. 2. PEA Arrest 3. Flash pulmonary edema. 4. RLL infiltrate improving with diuresis, likely related more to edema. 5. Substance abuse. 6. Anoxic brain injury, unknown extent of injury at this point. 7. Dilated Cardiomyopathy EF at 40-45%, 8. NSTEMI, Type 2 [place], demand ischemia. 9. JENNIFFER on CKD PLAN: p- Contoinue supportive care. - Hold lasix today. - Continue IV BB if BP allows. - Poor prognosis as no significant neurological recovery.
[2019-06-22] MEDS ORDERED: Insulin Glargine 10 UNITS in Pre-Filled Syringe 1 EACH SC SCH (17:45)
[2019-06-23] MEDS: Propofol 1,000 MG/100 ML VIAL IV PRN ×5 (00:11→20:52)
[2019-06-23] MEDS: Vecuronium 10 MG VIAL IV PRN ×3 (02:31→20:55)
[2019-06-23] MEDS: Metoprolol Tartrate 5 MG/5 ML VIAL IVP SCH ×4 (03:24→21:39)
[2019-06-23 04:06] LABS: Anion Gap 17 mmol/L (10-20); BUN (Urea Nitrogen) 90 mg/dL (8.9-20.6); Calc. Creatinine Clearance 49 mL/min (70-130); Carbon Dioxide 17 mmol/L (22-29); Chloride 113 mmol/L (98-107); Estimated GFR-MDRD 15; Glucose 401 mg/dL (70-105); Potassium 4.4 mmol/L (3.5-5.1); Sodium 143 mmol/L (136-145)
[2019-06-23 04:15] LABS: Band 9 % (5-11); Hemoglobin 12.7 g/dL (14.0-18.0); Lymphocytes 5 % (21-51); MDiff Complete? YES; Mean Corpuscular HGB CONC 31.9 g/dL (32.0-36.0); Mean Corpuscular Hemoglobin 29.4 pg (27.0-31.0); Mean Corpuscular Volume 92.3 fL (78.0-98.0); Mean Platelet Volume 8.7 fL (7.4-10.4); Monocytes 5 % (0-10); Neutrophil 81 % (42-75); Platelet Count 123 thou/uL (130-400); Platelet Morphology Comment Appears Adequate; RBC Distribution Width 13.7 % (11.5-14.5); Red Blood Cell (RBC) Count 4.31 mill/uL (4.70-6.10)
[2019-06-23] MEDS: methylPREDNISolone Sod Succ 40 MG VIAL IVP SCH ×4 (06:01→23:09)
[2019-06-23] MEDS: Piperacillin/Tazobactam 3.375 GM in Sodium Chloride 0.9% 100 ML IVPB SCH ×4 (06:01→23:09)
[2019-06-23] MEDS: HumaLOG 300 UNITS/3 ML VIAL SC PRN ×4 (06:02→23:29)
[2019-06-23 07:08] LABS: Base Excess (BEa) -11.4 mEq/L (-2.0 to +3.0); Calcium, Ionized 1.03 mmol/L (1.12-1.30); Carboxyhemoglobin (COHb) 0.7 gm% (0.0-3.0); Hemoglobin (Hb) 12.5 g/dL (14.0-18.0); O2 Tension (PaO2), arterial 77.4 mmHg (80.0-100.0); Potassium - ABG Lab 4.37 mmol/L (3.70-5.30); pH, Arterial 7.32 (7.35-7.45)
[2019-06-23 07:12] LABS: CO2 Tension 25.9 mmHg (35.0-45.0)
[2019-06-23 07:13] LABS: ALV-art Gradient 175.425 (0-20); Puncture Site RR
--- NOTE | 2019-06-23 07:51 | RAD ---
EXAM: CHEST ONE VIEW HISTORY: On ventilator. Follow-up evaluation. COMPARISON: 06/22/2019 FINDINGS: Endotracheal tube remains in place. There is been interval placement of a nasogastric tube tip of whi ch is not well visualized on this exam. Cardiac silhouette is magnified by projection but does again appear enlarged. Again noted is increased density at the left lung base with patchy airspace op acities again seen at the right lung base. This may be related to bibasilar pneumonia. Atypical pneumonia is a possibility. A associated left pleural effusion is also likely present.. No no other i nterval change IMPRESSION: Parenchymal airspace opacity right lung base with dense opacity at the left lung base. Findings may r elated to bibasilar pneumonia with associated left pleural effusion. Atypical pneumonia is a possibility. Follow-up to complete resolution is recommended.
[2019-06-23] MEDS: Enoxaparin Sodium 40 MG/0.4 ML SYRINGE SC SCH (08:22)
[2019-06-23] MEDS: Famotidine/PF 20 mg/2ml Vial SLOW IVP SCH (08:23)
[2019-06-23] MEDS: Aspirin 300 MG Suppository PR SCH (08:23)
[2019-06-23] MEDS: Insulin Glargine 20 UNITS in Pre-Filled Syringe 1 EACH SC SCH (08:23)
[2019-06-23] MEDS: hydrALAZINE 20 MG/ML VIAL SLOW IVP PRN (10:30)
[2019-06-23] MEDS: Labetalol HCl 100 MG/20 ML VIAL SLOW IVP PRN ×2 (11:06→20:29)
[2019-06-23] MEDS: niCARdipine 25 MG in Sodium Chloride 0.9% 250 ML 240 ML IVPB SCH (12:15)
[2019-06-23] MEDS: fentaNYL Citrate/PF 2,000 MCG in Sodium Chloride 0.9% 60 ML IV SCH (12:28)
--- NOTE | 2019-06-23 12:48 | PDOC.CPN ---
- Subjective Date: 06/23/19 Time: 12:45 Interval history: Remains unresponsive. - Review of Systems ROS unobtainable: due to endotracheal tube - Objective Allergies/Adverse Reactions: Allergies Allergy/AdvReac Type Severity Reaction Status Date / Time No Allergy Information Allergy Verified 06/19/19 04:43 Available Visit Medications: Current Medications Acetaminophen (Tylenol) 650 mg PO Q4H PRN PRN Reason: Headache/Fever/Mild Pain (1-3) Hydrocodone Bitart/Acetaminophen ([place] 5/325) 1 tab PO Q4H PRN PRN Reason: Moderate Pain (4-6) Albuterol/Ipratropium (Duoneb) 3 ml NEB [id number] PRN PRN Reason: SOB &/or Wheezing Albuterol/Ipratropium (Duoneb) 3 ml NEB [id number] COUNT INCLUDES [facility] Last Admin: 06/23/19 12:43 Dose: 3 ml Aspirin (Aspirin) 300 mg [place] DAILY [facility]CLUD[facility] Last Admin: 06/23/19 08:23 Dose: 300 mg Bisacodyl (Dulcolax) 10 mg PO DAILYPRN PRN PRN Reason: Constipation Clonidine (Catapres) 0.1 mg PO BID PRN PRN Reason: SBP > 160 use second Dextrose/Water (Dextrose 50%) 25 gm SLOW IVP PRN PRN PRN Reason: Hypoglycemia Dextrose/Water (Dextrose 50%) 25 gm SLOW IVP ONE PRN PRN Reason: HYPOGLYCEMIA PROTOCOL Stop: 06/26/19 12:30 Enoxaparin Sodium (Lovenox) 40 mg SC 0900 [facility] Last Admin: 06/23/19 08:22 Dose: 40 mg Famotidine (Pepcid) 20 mg SLOW IVP DAILY COUNT [facility]CLUDES [facility] Glucagon (Glucagon) 1 mg IM PRN PRN PRN Reason: Hypoglycemia Hydralazine HCl (Apresoline) 10 mg SLOW IVP Q6H PRN PRN Reason: SBP GREATER THAN 160 Last Admin: 06/23/19 10:30 Dose: 10 mg Promethazine HCl 12.5 mg/ (Sodium Chloride) 50.5 mls @ 202 mls/hr IVPB Q6H PRN PRN Reason: Nausea/vomiting use second Piperacillin Sod/Tazobactam (Sod 3.375 gm/ Sodium Chloride) 100 mls @ 200 mls/ hr IVPB Q6HR COUNT INCLUDES THE [facility] Stop: 06/25/19 23:00 Last Admin: 06/23/19 10:58 Dose: 100 mls Fentanyl Citrate 2,000 mcg/ (Sodium Chloride) 100 mls @ 0 mls/hr IV INF COUNT INCLUDES THE [facility]; Protocol Stop: 07/19/19 02:19 Last Admin: 06/23/19 12:28 Dose: 100 mls Fentanyl Citrate (Fentanyl Bolus) 250 mls @ 0 mls/hr IVPB PRN PRN PRN Reason: Breakthrough pain/agitation Stop: 07/19/19 02:19 Nicardipine HCl 25 mg/ Sodium (Chloride) 250 mls @ 0 mls/hr IVPB INF COUNT INCLUDES THE [facility]; Protocol Last Admin: 06/23/19 12:15 Dose: 250 mls Dextrose/Water (D5w) 1,000 mls @ 0 mls/hr IV INF PRN PRN Reason: HYPOGLYCEMIA PROTOCOL Insulin Glargine 20 units/ (Miscellaneous Medication) 0.2 mls @ 0 mls/hr [facility] Last Admin: 06/23/19 08:23 Dose: 0.2 mls Insulin Glargine 10 units/ (Miscellaneous Medication) 0.1 mls @ 0 mls/hr SC HS COUNT INCLUDES THE [facility] Insulin Human Lispro (Humalog) 0 units SC .AGGRESSIVE SLIDING PRN; Protocol PRN Reason: AGGRESSIVE SLIDING SCALE Labetalol HCl (Normodyne) 20 mg SLOW IVP Q4H PRN PRN Reason: SBP > 160 use third Last Admin: 06/23/19 11:06 Dose: 20 mg Lorazepam (Ativan) 2 mg SLOW IVP Q1H PRN PRN Reason: Breakthrough agitation Stop: 07/19/19 02:19 Last Admin: 06/21/19 21:19 Dose: 2 mg Methylprednisolone Sodium Succinate (Solu-Medrol) 40 mg IVP Q6HR COUNT INCLUDES [facility] Last Admin: 06/23/19 11:02 Dose: 40 mg Metoprolol Tartrate (Lopressor) 5 mg IVP 0400,1000,1600,2200 [facility]CLUDES [facility] Last Admin: 06/23/19 09:04 Dose: 5 mg Morphine Sulfate (Morphine) 2 mg SLOW IVP Q4H PRN PRN Reason: severe pain 4-10 Morphine Sulfate (Morphine) 2 mg SLOW IVP Q1H PRN PRN Reason: BREAKTHROUGH PAIN/Agitation Stop: 07/19/19 02:19 Ondansetron HCl (Zofran) 4 mg IVP Q6H PRN PRN Reason: Nausea/Vomiting use 1st Propofol (Diprivan) 1,000 mg IV INF PRN; Protocol PRN Reason: TO ACHIEVE GOAL RASS Stop: 07/19/19 02:19 Last Admin: 06/23/19 12:29 Dose: 1,000 mg Propofol (Diprivan Bolus) 20 mg IV Q5MIN PRN PRN Reason: BREAKTHROUGH AGITATION Stop: 07/19/19 02:19 Senna/Docusate Sodium (Senokot S) 2 tab PO BID PRN PRN Reason: Constipation Sodium Chloride (Flush - Normal Saline) 10 ml IVF PRN PRN PRN Reason: Saline Flush Vecuronium [place] (Norcuron) 10 mg IV Q30MIN PRN PRN Reason: SHIVERING Last Admin: 06/23/19 11:39 Dose: 10 mg Vital Signs & Weight: Vital Signs Temp Pulse Resp BP Pulse Ox 06/23/19 12:43 84 18 90 L 06/23/19 12:00 18 06/23/19 11:06 83 185/119 H 06/23/19 10:30 62 161/100 H 06/23/19 10:00 22 H 06/23/19 08:00 24 H 95 06/23/19 07:00 99 F 62 161/100 H 06/23/19 06:58 65 24 H 96 06/23/19 06:00 24 H 06/23/19 04:00 98.6 F 24 H 06/23/19 02:42 79 180/105 H 06/23/19 02:00 24 H Admit Weight 322 lb Weight 342 lb 13.101 oz - Physical Exam General: other (S/I) HEENT: normocephaly Neck: supple neck Cardiac: regular rate and rhythm Lungs: clear to auscultation Neuro: other (Unresposinve.) Abdomen: active bowel sounds Extremities: no edema Skin: clear Musculoskeletal: normal range of motion - Labs Result Diagrams: 06/23/19 03:23 06/23/19 03:23 Troponin/CKMB Troponin I 0.388 ng/mL (< 0.028) H* 06/19/19 08:14 - Telemetry Sinus rhythms and dysrhythmias: sinus rhythm - Assessment/Plan Assessment/Plan: 1. Out of hospital cardiac arrest. 2. PEA Arrest 3. Flash pulmonary edema. 4. RLL infiltrate, pneumonitis versus edema. Unchanged. 5. Substance abuse. 6. Anoxic brain injury. 7. Dilated Cardiomyopathy EF at 40-45%, 8. NSTEMI, Type 2 [place], demand ischemia. 9. JENNIFFER on CKD PLAN: - Continue supportive care. - Continue IV BB. - Poor prognosis as no significant neurological recovery. - Agree with DNR at this point chance of meaningful recovery are very low.
[2019-06-23] MEDS ORDERED: NICARDIPINE IVPB SCH (13:15)
[2019-06-23] MEDS ORDERED: SODIUM CHLORIDE 0.9% IVPB SCH (13:15)
[2019-06-23] MEDS: hydrALAZINE 20 MG/ML VIAL SLOW IVP SCH ×3 (13:50→20:29)
[2019-06-23] MEDS: niCARdipine 50 MG in Sodium Chloride 0.9% 250 ML 230 ML IVPB SCH ×3 (14:22→23:24)
--- NOTE | 2019-06-23 16:07 | PDOC.HOSPP ---
- Subjective Encounter Date: 06/23/19 non-verbal - Objective Vital Signs & Weight: Vital Signs (12 hours) Temp Pulse Resp BP Pulse Ox 06/23/19 16:00 89 160/86 H 06/23/19 15:06 89 160/86 H 06/23/19 13:58 24 H 06/23/19 13:50 86 188/112 H 06/23/19 12:44 86 188/112 H 06/23/19 12:43 84 18 90 L 06/23/19 12:00 18 06/23/19 11:06 83 185/119 H 06/23/19 10:30 62 161/100 H 06/23/19 10:00 22 H 06/23/19 08:00 24 H 95 06/23/19 07:00 99 F 62 161/100 H 06/23/19 06:58 65 24 H 96 06/23/19 06:00 24 H Weight Admit Weight 322 lb Weight 342 lb 13.101 oz Most Recent Monitor Data Heart Rate from ECG 89 NIBP 160/86 NIBP BP-Mean 110 Respiration from ECG 17 SpO2 91 I&O: 06/22/19 06/23/19 06/24/19 06:59 06:59 06:59 Intake Total 4885.8 3431.2 30 Output Total 1297 1602 1815 Balance 3588.8 1829.2 -1785 Result Diagrams: 06/23/19 03:23 06/23/19 03:23 Additional Labs: Accuchecks 06/23/19 06/23/19 06/22/19 11:48 06:04 23:56 POC Glucose 348 H 392 H 377 H 06/22/19 17:39 POC Glucose 379 H Hospitalist ROS - Medication Medications: Active Medications Generic Name Dose Route Start Last Admin Trade Name Freq PRN Reason Stop Dose Admin Albuterol/Ipratropium 3 ml 06/19/19 07:00 06/23/19 12:43 Duoneb NEB 3 ml [id number] SHARMILA Administration Aspirin 300 mg 06/19/19 09:00 06/23/19 08:23 Aspirin IA 300 mg DAILY SHARMILA Administration Enoxaparin Sodium 40 mg 06/19/19 09:00 06/23/19 08:22 Lovenox SC 40 mg 0900 SHARMILA Administration Hydralazine HCl 10 mg 06/19/19 02:07 06/23/19 10:30 Apresoline SLOW IVP 10 mg Q6H PRN Administration SBP GREATER THAN 160 Hydralazine HCl 10 mg 06/23/19 13:00 06/23/19 16:00 Apresoline SLOW IVP 10 mg Q4HR SHARMILA Administration Piperacillin Sod/Tazobactam 100 mls @ 200 mls/hr 06/19/19 06:00 06/23/19 10: 58 Sod 3.375 gm/ Sodium Chloride IVPB 06/25/19 23:00 100 mls Q6HR SHARMILA Administration Fentanyl Citrate 2,000 mcg/ 100 mls @ 0 mls/hr 06/19/19 02:19 06/23/19 12:28 Sodium Chloride IV 07/19/19 02:19 100 mls INF SHARMILA Administration Protocol Per Protocol Insulin Glargine 20 units/ 0.2 mls @ 0 mls/hr 06/22/19 09:00 06/23/19 08:23 Miscellaneous Medication SC 0.2 mls QAM SHARMILA Administration Nicardipine HCl 50 mg/ Sodium 250 mls @ 0 mls/hr 06/23/19 14:00 06/23/19 14: 22 Chloride IVPB 250 mls INF SHARMILA Administration Protocol Titrate Labetalol HCl 20 mg 06/19/19 02:07 06/23/19 11:06 Normodyne SLOW IVP 20 mg Q4H PRN Administration SBP > 160 use third Lorazepam 2 mg 06/19/19 02:19 06/21/19 21:19 Ativan SLOW IVP 07/19/19 02:19 2 mg Q1H PRN Administration Breakthrough agitation Methylprednisolone Sodium Succinate 40 mg 06/19/19 12:00 06/23/19 11:02 Solu-Medrol IVP 40 mg Q6HR SHARMILA Administration Metoprolol Tartrate 5 mg 06/19/19 16:00 06/23/19 15:14 Lopressor IVP 5 mg 0400,1000,1600,2200 SHARMILA Administration Propofol 1,000 mg 06/19/19 02:19 06/23/19 15:17 Diprivan IV 07/19/19 02:19 1,000 mg INF PRN Administration TO ACHIEVE GOAL RASS Protocol Vecuronium [place] 10 mg 06/19/19 07:30 06/23/19 11:39 Norcuron IV 10 mg Q30MIN PRN Administration SHIVERING - Exam General - other findings: Intubated. Unresponsive. Neck: supple Heart: RRR Respiratory: normal chest expansion, no tachypnea Hosp A/P (1) Anoxic brain injury Status: Acute (2) Cardiac arrest Code(s): I46.9 - CARDIAC ARREST, CAUSE UNSPECIFIED Status: Acute (3) Acute respiratory failure with hypoxia Code(s): J96.01 - ACUTE RESPIRATORY FAILURE WITH HYPOXIA Status: Acute (4) DKA (diabetic ketoacidoses) Code(s): E11.10 - TYPE 2 DIABETES MELLITUS WITH KETOACIDOSIS WITHOUT COMA Status: Acute (5) High anion gap metabolic acidosis Code(s): E87.2 - ACIDOSIS Status: Acute (6) Hypertensive urgency Code(s): I16.0 - HYPERTENSIVE URGENCY Status: Acute (7) Hypernatremia Code(s): E87.0 - HYPEROSMOLALITY AND HYPERNATREMIA Status: Acute (8) JENNIFFER (acute kidney injury) Code(s): N17.9 - ACUTE KIDNEY FAILURE, UNSPECIFIED Status: Acute - Plan 06/20: Mechanical ventilation management per critical care team. Acidosis resolved with ventilation and DKA protocol. Nicardipine drip is on hold as his pressures are improving. On sc lantus and SSI. Tube feeding will be initiated. EEG showing severe non specific generalized cerebral slowing. JENNIFFER worsening likely due to ATN after cardiac arrest. On IVF. 06/21: Volume overloaded now on lasix. Creatinine level worsening. Anoxic brain injury. Prognosis is guarded. Palliative care team arranging family meeting soon. Femoral culture showing coag negative staph and corynobacteria in 1/2 bottles likely a contaminant. 06/22: Pt is now DNR. His mother wants to wailt until thursday to make further decisions. He is diuresing well. BP controlled on nicardipine.
--- NOTE | 2019-06-23 17:25 | PRG ---
DATE OF SERVICE: 06/23/2019 SUBJECTIVE: Roge Gómez had his sedation held for prolonged period this morning. He becomes very dyssynchronous with mechanical ventilation. He also becomes very hypertensive. He does not wake up and follow any commands. OBJECTIVE: VITAL SIGNS: Heart rate is in the 80s, blood pressure this afternoon is in the 160 range. He had to be placed back on multiple different medications to control his pressure. Respiratory rate is per mechanical ventilation. LUNGS: Unchanged. HEART: Unchanged. ABDOMEN: Unchanged. NEUROLOGIC: Unchanged. LABORATORY DATA: White count 6, hemoglobin 12.7, and platelets 123. Sodium 143, potassium 4.4, chloride 113, bicarb 17, BUN 90, creatinine 4.3, and glucose 401. IMPRESSION: 1. Respiratory failure after an [id number] arrest. 2. Anoxic brain injury. 3. Hyperchloremic acidosis. 4. Progressive renal failure. 5. Diabetes. 6. Obesity. 7. History of medical noncompliance. I had a long discussion with his mother by phone. She does not want him to be dialyzed. She does not want him to be a full code any longer and agreed to a [id number] status. She did want to continue to try to support him to see if he starts to improve neurologically. I did explain to her that functional recovery is extremely unlikely at this point. We will continue supporting for several more days and re-evaluate him Thursday. I have asked his mother to come up to the ICU Thursday, so we can meet in person, so she can see Roge, and hopefully, we can discuss either continuing because of some improvement over the weekend or stopping because of a lack of improvement. I suspect there will not be any meaningful improvement over the next three days. CRITICAL CARE TIME: 30 minutes. Job ID: [id number]
[2019-06-23] MEDS: Insulin Glargine 10 UNITS in Pre-Filled Syringe 1 EACH SC SCH (20:28)
[2019-06-24] MEDS: Propofol 1,000 MG/100 ML VIAL IV PRN ×7 (00:08→18:07)
[2019-06-24] MEDS: hydrALAZINE 20 MG/ML VIAL SLOW IVP SCH ×6 (01:14→21:40)
[2019-06-24] MEDS: Vecuronium 10 MG VIAL IV PRN (02:48)
[2019-06-24] MEDS: niCARdipine 50 MG in Sodium Chloride 0.9% 250 ML 230 ML IVPB SCH ×5 (02:48→18:06)
[2019-06-24] MEDS: Metoprolol Tartrate 5 MG/5 ML VIAL IVP SCH ×4 (03:03→21:43)
[2019-06-24] MEDS: hydrALAZINE 20 MG/ML VIAL SLOW IVP PRN (03:52)
[2019-06-24 04:40] LABS: Anion Gap 20 mmol/L (10-20); BUN (Urea Nitrogen) 77 mg/dL (8.9-20.6); Calc. Creatinine Clearance 80 mL/min (70-130); Calcium 7.7 mg/dL (7.8-10.44); Carbon Dioxide 20 mmol/L (22-29); Chloride 116 mmol/L (98-107); Estimated GFR-MDRD 28; Glucose 390 mg/dL (70-105); Potassium 3.6 mmol/L (3.5-5.1); Sodium 152 mmol/L (136-145)
[2019-06-24] MEDS: Piperacillin/Tazobactam 3.375 GM in Sodium Chloride 0.9% 100 ML IVPB SCH ×4 (05:18→23:43)
[2019-06-24] MEDS: methylPREDNISolone Sod Succ 40 MG VIAL IVP SCH ×4 (05:18→23:43)
[2019-06-24] MEDS: HumaLOG 300 UNITS/3 ML VIAL SC PRN ×4 (05:37→23:44)
[2019-06-24 05:40] LABS: Hemoglobin 14.9 g/dL (14.0-18.0); Mean Corpuscular HGB CONC 32.9 g/dL (32.0-36.0); Mean Corpuscular Volume 91.4 fL (78.0-98.0); Mean Platelet Volume 8.5 fL (7.4-10.4); Platelet Count 160 thou/uL (130-400); RBC Distribution Width 13.9 % (11.5-14.5); Red Blood Cell (RBC) Count 4.95 mill/uL (4.70-6.10); White Blood Cell (WBC) Count 10.1 thou/uL (4.8-10.8)
[2019-06-24 06:17] LABS: Band 8 % (5-11); Lymphocytes 3 % (21-51); MDiff Complete? YES; Neutrophil 89 % (42-75)
[2019-06-24 07:12] LABS: Actual Bicarbonate (HCO3a) 18.8 mEq/L (22-28); Base Excess (BEa) -5.6 mEq/L (-2.0 to +3.0); CO2 Tension 33.8 mmHg (35.0-45.0); Calcium, Ionized 1.08 mmol/L (1.12-1.30); Carboxyhemoglobin (COHb) 0.9 gm% (0.0-3.0); Hemoglobin (Hb) 14.6 g/dL (14.0-18.0); O2 Tension (PaO2), arterial 82.6 mmHg (80.0-100.0); Potassium - ABG Lab 3.62 mmol/L (3.70-5.30); pH, Arterial 7.36 (7.35-7.45)
[2019-06-24 07:14] LABS: Puncture Site RRA
[2019-06-24] MEDS: Enoxaparin Sodium 40 MG/0.4 ML SYRINGE SC SCH (07:19)
[2019-06-24] MEDS: Famotidine/PF 20 mg/2ml Vial SLOW IVP SCH (07:19)
[2019-06-24] MEDS: Aspirin 300 MG Suppository PR SCH (07:19)
[2019-06-24] MEDS: Insulin Glargine 20 UNITS in Pre-Filled Syringe 1 EACH SC SCH (09:18)
--- NOTE | 2019-06-24 09:58 | PRG ---
DATE OF SERVICE: 06/24/2019 SUBJECTIVE: Roge Gómez is clinically unchanged. OBJECTIVE: VITAL SIGNS: Heart rate 102, blood pressure 149/82, respiratory rate 20s. LUNGS: Clear anteriorly. HEART: Regular rhythm. ABDOMEN: Soft. LABORATORY DATA: Chest x-ray has been reviewed. He has some atelectasis of his left upper lobe today. White count 10.1, hemoglobin 14.9, platelets 160,000. Sodium 152, potassium 3.6 , chloride 116, bicarb 20, BUN 77, creatinine 2.58, which is down from 4.31. IMPRESSION: 1. Ixq-wv-njgawrvt arrest with anoxic injury. 2. Ukrki-wp-ycsfhrp kidney disease. 3. Diabetes. 4. History of medical noncompliance. 5. Obesity. We will continue supportive care. We will reassess him early in the week. Hoping to meet with the mother on Thursday and consider withdrawal of care if he is not neurologically better. He also has systolic cardiomyopathy, but management will not change at this time. We will just continue with supportive care. Critical care time 35 min. Job ID: [id number] MTDD
--- NOTE | 2019-06-24 10:18 | RAD ---
PORTABLE CHEST: Date: 06/24/2019 HISTORY: Follow-up pneumonia. COMPARISON: Prior day's exam. FINDINGS: Heart size is enlarged. Opacification of the left base is similar to the prior examination. Some of t he left upper lobe parenchymal lung changes appear worsened and some of the changes in the right base appear slightly improved. IMPRESSION: Improvement to changes in the right lung base with worsened appearance to some of the left upper lobe changes. POS: ELIEZER
--- NOTE | 2019-06-24 15:30 | PDOC.HOSPP ---
- Subjective Encounter Date: 06/24/19 Subjective: The patient remains intubated. He is not on paralytics today and appears to be somewhat agitated on propofol. His blood pressure is elevated and he is on nicardipine drip. - Objective Vital Signs & Weight: Vital Signs (12 hours) Temp Pulse Resp BP Pulse Ox 06/24/19 15:09 84 168/82 H 06/24/19 14:51 99.5 F 06/24/19 13:04 106 H 186/82 H 06/24/19 13:02 104 H 29 H 95 06/24/19 11:54 97 164/86 H 06/24/19 10:34 97 164/86 H 06/24/19 07:54 98.8 F 06/24/19 07:19 91 152/98 H 06/24/19 07:01 22 H 94 L 06/24/19 07:00 98.8 F 06/24/19 06:46 91 152/98 H 06/24/19 06:43 93 24 H 93 L 06/24/19 06:00 25 H 06/24/19 05:17 88 153/82 H 06/24/19 04:00 97.7 F 19 06/24/19 03:54 187/91 H 06/24/19 03:52 92 187/91 H Weight Admit Weight 322 lb Weight 329 lb 9.457 oz Most Recent Monitor Data Heart Rate from ECG 85 NIBP 168/82 NIBP BP-Mean 110 Respiration from ECG 18 SpO2 91 I&O: 06/23/19 06/24/19 06/25/19 06:59 06:59 06:59 Intake Total 3431.2 3803 765 Output Total 1602 9215 3110 Balance 1829.2 -5412 -2345 Result Diagrams: 06/24/19 03:30 06/24/19 03:30 Additional Labs: Accuchecks 06/24/19 06/24/19 06/23/19 11:31 05:41 23:32 POC Glucose 329 H 345 H 360 H 06/23/19 17:13 POC Glucose 360 H Hospitalist ROS - Medication Medications: Active Medications Generic Name Dose Route Start Last Admin Trade Name Freq PRN Reason Stop Dose Admin Albuterol/Ipratropium 3 ml 06/19/19 07:00 06/24/19 13:02 Duoneb NEB 3 ml [id number] SHARMILA Administration Aspirin 300 mg 06/19/19 09:00 06/24/19 07:19 Aspirin OR 300 mg DAILY SHARMILA Administration Clonidine 0.1 mg 06/19/19 02:07 06/24/19 03:54 Catapres PO 0.1 mg BID PRN Administration SBP > 160 use second Enoxaparin Sodium 40 mg 06/19/19 09:00 06/24/19 07:19 Lovenox SC 40 mg 09 SHARMILA Administration Famotidine 20 mg 06/24/19 09:00 06/24/19 07:19 Pepcid SLOW IVP 20 mg DAILY SHARMILA Administration Hydralazine HCl 10 mg 06/19/19 02:07 06/24/19 03:52 Apresoline SLOW IVP 10 mg Q6H PRN Administration SBP GREATER THAN 160 Hydralazine HCl 10 mg 06/23/19 13:00 06/24/19 11:54 Apresoline SLOW IVP 10 mg Q4HR SHARMILA Administration Piperacillin Sod/Tazobactam 100 mls @ 200 mls/hr 06/19/19 06:00 06/24/19 10: 26 Sod 3.375 gm/ Sodium Chloride IVPB 06/25/19 23:00 100 mls Q6HR SHARMILA Administration Fentanyl Citrate 2,000 mcg/ 100 mls @ 0 mls/hr 06/19/19 02:19 06/23/19 12:28 Sodium Chloride IV 07/19/19 02:19 100 mls INF SHARMILA Administration Protocol Per Protocol Insulin Glargine 20 units/ 0.2 mls @ 0 mls/hr 06/22/19 09:00 06/24/19 09:18 Miscellaneous Medication SC 0.2 mls QAM SHARMILA Administration Insulin Glargine 10 units/ 0.1 mls @ 0 mls/hr 06/23/19 21:00 06/23/19 20:28 Miscellaneous Medication SC 0.1 mls HS SHARMILA Administration Nicardipine HCl 50 mg/ Sodium 250 mls @ 0 mls/hr 06/23/19 14:00 06/24/19 09: 33 Chloride IVPB 250 mls INF SHARMILA Administration Protocol Titrate Insulin Human Lispro 0 units 06/23/19 12:45 06/24/19 11:29 Humalog SC 11 unit .AGGRESSIVE SLIDING PRN Administration AGGRESSIVE SLIDING SCALE Protocol Labetalol HCl 20 mg 06/19/19 02:07 06/23/19 20:29 Normodyne SLOW IVP 20 mg Q4H PRN Administration SBP > 160 use third Lorazepam 2 mg 06/19/19 02:19 06/21/19 21:19 Ativan SLOW IVP 07/19/19 02:19 2 mg Q1H PRN Administration Breakthrough agitation Methylprednisolone Sodium Succinate 40 mg 06/19/19 12:00 06/24/19 10:26 Solu-Medrol IVP 40 mg Q6HR SHARMILA Administration Metoprolol Tartrate 5 mg 06/19/19 16:00 06/24/19 14:58 Lopressor IVP 5 mg 0400,1000,1600,2200 SHARMILA Administration Propofol 1,000 mg 06/19/19 02:19 06/24/19 11:55 Diprivan IV 07/19/19 02:19 1,000 mg INF PRN Administration TO ACHIEVE GOAL RASS Protocol Vecuronium [place] 10 mg 06/19/19 07:30 06/24/19 02:48 Norcuron IV 10 mg Q30MIN PRN Administration SHIVERING - Exam General - other findings: Remains intubated on mechanical ventilation. The PEEP remains high at 10. ENT: normocephalic atraumatic Neck: supple Heart: RRR Respiratory: normal chest expansion, tachypneic Gastrointestinal: soft Hosp A/P (1) Anoxic brain injury Status: Acute (2) Cardiac arrest Code(s): I46.9 - CARDIAC ARREST, CAUSE UNSPECIFIED Status: Acute (3) Acute respiratory failure with hypoxia Code(s): J96.01 - ACUTE RESPIRATORY FAILURE WITH HYPOXIA Status: Acute (4) DKA (diabetic ketoacidoses) Code(s): E11.10 - TYPE 2 DIABETES MELLITUS WITH KETOACIDOSIS WITHOUT COMA Status: Acute (5) High anion gap metabolic acidosis Code(s): E87.2 - ACIDOSIS Status: Acute (6) Hypertensive urgency Code(s): I16.0 - HYPERTENSIVE URGENCY Status: Acute (7) Hypernatremia Code(s): E87.0 - HYPEROSMOLALITY AND HYPERNATREMIA Status: Acute (8) JENNIFFER (acute kidney injury) Code(s): N17.9 - ACUTE KIDNEY FAILURE, UNSPECIFIED Status: Acute - Plan 06/20: Mechanical ventilation management per critical care team. Acidosis resolved with ventilation and DKA protocol. Nicardipine drip is on hold as his pressures are improving. On sc lantus and SSI. Tube feeding will be initiated. EEG showing severe non specific generalized cerebral slowing. JENNIFFER worsening likely due to ATN after cardiac arrest. On IVF. 06/21: Volume overloaded now on lasix. Creatinine level worsening. Anoxic brain injury. Prognosis is guarded. Palliative care team arranging family meeting soon. Femoral culture showing coag negative staph and corynobacteria in 1/2 bottles likely a contaminant. 06/22: Pt is now DNR. His mother wants to wailt until thursday to make further decisions. He is diuresing well. BP controlled on nicardipine. 06/23: No new events overnight. Remains stable on mechanical ventilation. Still no meaningful response from the patient. Anoxic brain injury appears to be severe with poor overall prognosis. We will continue current management until his family arrive on Thursday to discuss further management.
[2019-06-24] MEDS: fentaNYL Citrate/PF 2,000 MCG in Sodium Chloride 0.9% 60 ML IV SCH (17:43)
[2019-06-24] MEDS ORDERED: Vancomycin 1 GM in Premix Bag 1 BAG IVPB SCH (18:00)
[2019-06-24] MEDS: Insulin Glargine 10 UNITS in Pre-Filled Syringe 1 EACH SC SCH (22:08)
[2019-06-25] MEDS: Propofol 1,000 MG/100 ML VIAL IV PRN ×5 (01:09→22:49)
[2019-06-25] MEDS: hydrALAZINE 20 MG/ML VIAL SLOW IVP SCH ×6 (01:09→21:53)
[2019-06-25] MEDS: Acetaminophen 325 MG TAB PO PRN ×2 (02:20→08:03)
[2019-06-25] MEDS: niCARdipine 50 MG in Sodium Chloride 0.9% 250 ML 230 ML IVPB SCH ×4 (02:24→22:34)
[2019-06-25 04:21] LABS: Band 3 % (5-11); Hemoglobin 14.8 g/dL (14.0-18.0); Lymphocytes 5 % (21-51); MDiff Complete? YES; Mean Corpuscular HGB CONC 32.1 g/dL (32.0-36.0); Mean Corpuscular Hemoglobin 29.7 pg (27.0-31.0); Mean Corpuscular Volume 92.7 fL (78.0-98.0); Mean Platelet Volume 8.4 fL (7.4-10.4); Monocytes 9 % (0-10); Neutrophil 83 % (42-75); Platelet Count 146 thou/uL (130-400); RBC Distribution Width 14.4 % (11.5-14.5); Red Blood Cell (RBC) Count 4.99 mill/uL (4.70-6.10); White Blood Cell (WBC) Count 9.3 thou/uL (4.8-10.8)
[2019-06-25 04:36] LABS: Anion Gap 17 mmol/L (10-20); BUN (Urea Nitrogen) 56 mg/dL (8.9-20.6); Carbon Dioxide 24 mmol/L (22-29); Chloride 122 mmol/L (98-107); Potassium 3.5 mmol/L (3.5-5.1); Sodium 159 mmol/L (136-145)
[2019-06-25 04:37] LABS: Calc. Creatinine Clearance 113 mL/min (70-130); Calcium 8.2 mg/dL (7.8-10.44); Estimated GFR-MDRD 41; Glucose 317 mg/dL (70-105)
[2019-06-25] MEDS: HumaLOG 300 UNITS/3 ML VIAL SC PRN (04:53)
[2019-06-25] MEDS: Metoprolol Tartrate 5 MG/5 ML VIAL IVP SCH ×4 (04:53→23:13)
[2019-06-25] MEDS: Dextrose 5% in Water 1,000 ML IV SCH ×2 (06:35→16:24)
[2019-06-25] MEDS: HUMULIN R 100 UNITS in Sodium Chloride 0.9% 100 ML IVPB SCH (06:35)
[2019-06-25] MEDS: Piperacillin/Tazobactam 3.375 GM in Sodium Chloride 0.9% 100 ML IVPB SCH ×3 (06:36→17:41)
[2019-06-25] MEDS: methylPREDNISolone Sod Succ 40 MG VIAL IVP SCH ×3 (06:37→21:53)
[2019-06-25] MEDS: fentaNYL Citrate/PF 2,000 MCG in Sodium Chloride 0.9% 60 ML IV SCH ×2 (06:42→18:03)
[2019-06-25 07:07] LABS: Actual Bicarbonate (HCO3a) 26.1 mEq/L (22-28); Base Excess (BEa) 1.1 mEq/L (-2.0 to +3.0); CO2 Tension 42.8 mmHg (35.0-45.0); Calcium, Ionized 1.13 mmol/L (1.12-1.30); Carboxyhemoglobin (COHb) 0.7 gm% (0.0-3.0); Hemoglobin (Hb) 15.6 g/dL (14.0-18.0); O2 Tension (PaO2), arterial 81.5 mmHg (80.0-100.0); Potassium - ABG Lab 3.42 mmol/L (3.70-5.30); Puncture Site RRA
[2019-06-25] MEDS ORDERED: Potassium Chloride 40 MEQ in Premix Bag 1 BAG IVPB SCH (07:30)
--- NOTE | 2019-06-25 07:39 | PRG ---
DATE OF SERVICE: 06/25/2019 I was called by the nurse at about 5:30 this morning stating that the patient's sodium was 158 and he had copious urine output overnight. At that time, we gave some DDAVP. SUBJECTIVE: This morning, the patient remains unresponsive on mechanical ventilation. The only thing I can detect is some spontaneous respirations on the ventilator and some head jerking. OBJECTIVE: VITAL SIGNS: His temperature is 100.8 with a T-max of 102.6; pulse 92; blood pressure 195/91, currently on a Cardene drip. Intake for 24 hours 3403 and output 9550. Weight currently 316 pounds. HEENT: His eyes are deviated upward. Pupils are 2 mm, not reactive to light. Oropharynx is dry. NECK: No adenopathy or JVD. LUNGS: Coarse breath sounds bilaterally. CARDIOVASCULAR: S1 and S2. Tachycardic. ABDOMEN: Obese, soft. EXTREMITIES: No withdrawal to pain. LABORATORY DATA: Sodium 159, up from 152; potassium 3.5; chloride 122; CO2 of 24; BUN 56; creatinine 1.8; glucose 317. The pH is 7.40, pCO2 of 42, pO2 of 81, SIMV rate 18, tidal volume 550, PEEP 10, and FiO2 of 70%. White blood cell count 9.3, hematocrit 46.3, and platelet count 146. ASSESSMENT: 1. Status post out of hospital arrest. 2. Severe anoxic brain injury, near brain . 3. Central diabetes insipidus. 4. Acute on chronic kidney disease. 5. Diabetes mellitus. 6. Hypertension. 7. Obesity. PLAN: The patient will not survive this illness. I will go ahead and treat his central diabetes insipidus with DDAVP, and monitor his sodium closely. I have changed his IV fluids to D5W. We will add an insulin drip to help mitigate the rise in his blood sugars. I have decreased the steroid dose since I do not see the necessity of continuing that medication. He is on empiric antibiotics for presumed aspiration. He is on nicardipine for the blood pressure. TIME SPENT: The above encompassed 35 minutes of critical care time. Job ID: [id number]
[2019-06-25] MEDS: Enoxaparin Sodium 40 MG/0.4 ML SYRINGE SC SCH (08:02)
[2019-06-25] MEDS: Aspirin 300 MG Suppository PR SCH (08:03)
[2019-06-25] MEDS: Famotidine/PF 20 mg/2ml Vial SLOW IVP SCH (08:03)
--- NOTE | 2019-06-25 08:06 | RAD ---
Exam: Chest one view HISTORY:Respiratory distress. Ventilated patient. Comparison: 06/24/2019 FINDINGS: Lines and tubes: Stable endotracheal tube, nasogastric tube. Cardiac silhouette:Persistent cardiomegaly. Aorta: Unremarkable Pulmonary vessels: Normal Costophrenic angles: Probable left-sided pleural effusion LUNGS: Persistent lung parenchymal opacities. Pneumothorax: None Osseous abnormalities: None IMPRESSION: No significant interval change
[2019-06-25 08:45] LABS: Anion Gap 17 mmol/L (10-20); BUN (Urea Nitrogen) 56 mg/dL (8.9-20.6); Calc. Creatinine Clearance 109 mL/min (70-130); Calcium 8.4 mg/dL (7.8-10.44); Carbon Dioxide 24 mmol/L (22-29); Chloride 124 mmol/L (98-107); Estimated GFR-MDRD 42; Glucose 290 mg/dL (70-105); Magnesium 2.8 mg/dL (1.6-2.6); Potassium 3.4 mmol/L (3.5-5.1); Sodium 162 mmol/L (136-145)
[2019-06-25 10:27] LABS: Anion Gap 17 mmol/L (10-20); BUN (Urea Nitrogen) 51 mg/dL (8.9-20.6); Calc. Creatinine Clearance 117 mL/min (70-130); Calcium 8.6 mg/dL (7.8-10.44); Carbon Dioxide 26 mmol/L (22-29); Chloride 125 mmol/L (98-107); Estimated GFR-MDRD 45; Glucose 235 mg/dL (70-105); Magnesium 2.9 mg/dL (1.6-2.6); Potassium 3.8 mmol/L (3.5-5.1); Sodium 164 mmol/L (136-145)
--- NOTE | 2019-06-25 11:53 | PDOC.HOSPP ---
- Subjective Encounter Date: 06/25/19 Encounter Time: 07:15 Subjective: overnight, febrile, became severely hypernatremic. This morning, started D5W and desmopressin. Remains sedated and intubated. - Objective Vital Signs & Weight: Vital Signs (12 hours) Temp Pulse Resp BP Pulse Ox 06/25/19 10:24 96 177/91 H 06/25/19 10:00 20 06/25/19 09:00 101 F H 06/25/19 08:03 105 H 194/100 H 06/25/19 08:00 93 L 06/25/19 07:59 21 H 06/25/19 07:54 102.5 F H 06/25/19 06:48 105 H 194/100 H 06/25/19 06:46 105 H 23 H 93 L 06/25/19 06:00 24 H 06/25/19 04:53 106 H 202/98 H 06/25/19 04:00 100.8 F H 24 H 06/25/19 03:50 106 H 202/98 H 06/25/19 02:00 102.6 F H 23 H 06/25/19 01:20 106 H 94 L 06/25/19 01:09 90 188/96 H 06/25/19 00:00 100.6 F H 22 H Weight Admit Weight 322 lb Weight 316 lb 12.868 oz Most Recent Monitor Data Heart Rate from ECG 97 NIBP 149/93 NIBP BP-Mean 111 Respiration from ECG 18 SpO2 95 I&O: 06/24/19 06/25/19 06/26/19 06:59 06:59 06:59 Intake Total 3803 5661 4 Output Total 9215 23800 2019 [facility] -[id number] -4489 Result Diagrams: 06/25/19 03:49 06/25/19 09:54 Additional Labs: Accuchecks 06/25/19 06/25/19 06/25/19 11:16 10:20 09:14 POC Glucose 178 H 196 H 214 H 06/25/19 06/25/19 06/24/19 08:11 07:15 22:49 POC Glucose 239 H 288 H 284 H 06/24/19 16:54 POC Glucose 252 H Hospitalist ROS - Review of Systems ROS unobtainable: due to endotracheal tube - Medication Medications: Active Medications Generic Name Dose Route Start Last Admin Trade Name Freq PRN Reason Stop Dose Admin Acetaminophen 650 mg 06/19/19 02:08 06/25/19 08:03 Tylenol PO 650 mg Q4H PRN Administration Headache/Fever/Mild Pain (1-3) Albuterol/Ipratropium 3 ml 06/19/19 07:00 06/25/19 06:46 Duoneb NEB 3 ml [id number] SHARMILA Administration Aspirin 300 mg 06/19/19 09:00 06/25/19 08:03 Aspirin [place] 300 mg DAILY SHARMILA Administration Clonidine 0.1 mg 06/19/19 02:07 06/24/19 03:54 Catapres PO 0.1 mg BID PRN Administration SBP > 160 use second Enoxaparin Sodium 40 mg 06/19/19 09:00 06/25/19 08:02 Lovenox SC 40 mg 0900 SHARMILA Administration Famotidine 20 mg 06/24/19 09:00 06/25/19 08:03 Pepcid SLOW IVP 20 mg DAILY SHARMILA Administration Hydralazine HCl 10 mg 06/19/19 02:07 06/24/19 03:52 Apresoline SLOW IVP 10 mg Q6H PRN Administration SBP GREATER THAN 160 Hydralazine HCl 10 mg 06/23/19 13:00 06/25/19 08:03 Apresoline SLOW IVP 10 mg Q4HR SHARMILA Administration Piperacillin Sod/Tazobactam 100 mls @ 200 mls/hr 06/19/19 06:00 06/25/19 06: 36 Sod 3.375 gm/ Sodium Chloride IVPB 06/25/19 23:00 100 mls Q6HR SHARMILA Administration Fentanyl Citrate 2,000 mcg/ 100 mls @ 0 mls/hr 06/19/19 02:19 06/25/19 06:42 Sodium Chloride IV 07/19/19 02:19 100 mls INF SHARMILA Administration Protocol Per Protocol Nicardipine HCl 50 mg/ Sodium 250 mls @ 0 mls/hr 06/23/19 14:00 06/25/19 07: 47 Chloride IVPB 250 mls INF SHARMILA Administration Protocol Titrate Dextrose/Water 1,000 mls @ 100 mls/hr 06/25/19 06:15 06/25/19 06:35 D5w IV 1,000 mls .Q10H SHARMILA Administration Insulin Human Regular 100 101 mls @ 0 mls/hr 06/25/19 06:15 06/25/19 06:35 units/ Sodium Chloride IVPB 101 mls INF SHARMILA Administration Protocol Titrate Potassium Chloride 40 meq/ 100 mls @ 25 mls/hr 06/25/19 07:30 06/25/19 08:01 Device IVPB 06/25/19 12:00 100 mls NOW SHARMILA Administration Labetalol HCl 20 mg 06/19/19 02:07 06/23/19 20:29 Normodyne SLOW IVP 20 mg Q4H PRN Administration SBP > 160 use third Lorazepam 2 mg 06/19/19 02:19 06/21/19 21:19 Ativan SLOW IVP 07/19/19 02:19 2 mg Q1H PRN Administration Breakthrough agitation Methylprednisolone Sodium Succinate 20 mg 06/25/19 09:00 06/25/19 08:02 Solu-Medrol IVP 20 mg BID SHARMILA Administration Metoprolol Tartrate 5 mg 06/19/19 16:00 06/25/19 09:11 Lopressor IVP 5 mg 0400,1000,1600,2200 SHARMILA Administration Propofol 1,000 mg 06/19/19 02:19 06/25/19 04:53 Diprivan IV 07/19/19 02:19 1,000 mg INF PRN Administration TO ACHIEVE GOAL RASS Protocol Vecuronium [place] 10 mg 06/19/19 07:30 06/24/19 02:48 Norcuron IV 10 mg Q30MIN PRN Administration SHIVERING - Exam General - other findings: intubated and sedated Eye: anicteric sclera Eye - other findings: upward deviation Neck: no JVD Heart: no gallops Heart - other findings: tachycardia, sinus on telemetry Respiratory - other findings: Coarse breath sounds Gastrointestinal: soft, non-distended Extremities: 1+ LE edema Psychiatric - other findings: sedated Hosp A/P - Plan #acute hypernatremia due to central diabetes insipidus -Na 159 -likley due to anoxic brain injury -desmopressing and D5W -insulin drip for hyperglycemia -follow Na #anoxic encephalopathy #HFrEF #JENNIFFER -stopped lasix in context of central DI DNAR Poor prognosis Plan is to have conversation with the family on Thursday. Will attempt to reach family today to update regarding condition and poor prognosis.
[2019-06-25 12:20] LABS: Bacteria/HPF 2+ HPF (None Seen); Bilirubin Negative (Negative); Blood, Urine 1+ (Negative); Clarity Turbid (Clear); Glucose, Urine (Dipstick) 30 mg/dL (Negative); Leukocyte Negative Leu/uL (Negative); Nitrite Negative (Negative); Protein, Urine (Dipstick) 30 mg/dL (Neg-Trace); Squamous Epithelial 0-3 HPF (0-3); Urobilinogen Normal mg/dL (Less than 2)
[2019-06-25 12:22] LABS: Urine Culture Reflex Yes Yes
[2019-06-25 12:55] LABS: Anion Gap 16 mmol/L (10-20); BUN (Urea Nitrogen) 53 mg/dL (8.9-20.6); Calc. Creatinine Clearance 114 mL/min (70-130); Calcium 8.2 mg/dL (7.8-10.44); Carbon Dioxide 26 mmol/L (22-29); Chloride 126 mmol/L (98-107); Estimated GFR-MDRD 44; Glucose 172 mg/dL (70-105); Magnesium 2.9 mg/dL (1.6-2.6); Potassium 3.5 mmol/L (3.5-5.1); Sodium 164 mmol/L (136-145)
[2019-06-25 18:22] LABS: Sodium 160 mmol/L (136-145)
[2019-06-26] MEDS: hydrALAZINE 20 MG/ML VIAL SLOW IVP SCH ×6 (01:25→21:33)
[2019-06-26] MEDS: Dextrose 5% in Water 1,000 ML IV SCH ×4 (01:35→16:28)
[2019-06-26] MEDS: Propofol 1,000 MG/100 ML VIAL IV PRN ×6 (02:44→17:26)
[2019-06-26] MEDS: Diltiazem HCl 125 MG, Admixture Fee 1 EACH in Sodium Chloride 0.9% 100 ML IVPB SCH ×3 (02:57→16:28)
[2019-06-26 02:59] LABS: Band 2 % (5-11); Hemoglobin 14.5 g/dL (14.0-18.0); Lymphocytes 8 % (21-51); MDiff Complete? YES; Mean Corpuscular HGB CONC 31.8 g/dL (32.0-36.0); Mean Corpuscular Hemoglobin 30.4 pg (27.0-31.0); Mean Corpuscular Volume 95.3 fL (78.0-98.0); Mean Platelet Volume 8.7 fL (7.4-10.4); Monocytes 8 % (0-10); Neutrophil 82 % (42-75); Platelet Count 112 thou/uL (130-400); Platelet Morphology Comment Appears Adequate; RBC Distribution Width 14.2 % (11.5-14.5); Red Blood Cell (RBC) Count 4.79 mill/uL (4.70-6.10); White Blood Cell (WBC) Count 9.3 thou/uL (4.8-10.8)
[2019-06-26 03:20] LABS: ALT (SGPT) 62 U/L (8-55); AST (SGOT) 18 U/L (5-34); Albumin 3.6 g/dL (3.5-5.0); Alkaline Phosphatase 55 U/L (40-110); Anion Gap 13 mmol/L (10-20); BUN (Urea Nitrogen) 59 mg/dL (8.9-20.6); Bilirubin, Total 0.6 mg/dL (0.2-1.2); Calc. Creatinine Clearance 106 mL/min (70-130); Calcium 8.1 mg/dL (7.8-10.44); Carbon Dioxide 28 mmol/L (22-29); Chloride 125 mmol/L (98-107); Estimated GFR-MDRD 40; Globulin 2.7 g/dL (2.4-3.5); Glucose 176 mg/dL (70-105); Magnesium 2.9 mg/dL (1.6-2.6); Phosphorus 4.3 mg/dL (2.3-4.7); Potassium 3.8 mmol/L (3.5-5.1); Protein, Total 6.3 g/dL (6.0-8.3); Sodium 162 mmol/L (136-145)
[2019-06-26] MEDS: Metoprolol Tartrate 5 MG/5 ML VIAL IVP SCH ×4 (04:28→21:33)
[2019-06-26 07:00] LABS: Actual Bicarbonate (HCO3a) 23.5 mEq/L (22-28); Base Excess (BEa) -1.9 mEq/L (-2.0 to +3.0); CO2 Tension 42.7 mmHg (35.0-45.0); Calcium, Ionized 1.12 mmol/L (1.12-1.30); Carboxyhemoglobin (COHb) 0.9 gm% (0.0-3.0); Hemoglobin (Hb) 14.4 g/dL (14.0-18.0); O2 Tension (PaO2), arterial 60.9 mmHg (80.0-100.0); Potassium - ABG Lab 3.88 mmol/L (3.70-5.30); pH, Arterial 7.36 (7.35-7.45)
[2019-06-26 07:01] LABS: Puncture Site RRA
[2019-06-26 07:02] LABS: ALV-art Gradient 384.825 (0-20)
[2019-06-26] MEDS: fentaNYL Citrate/PF 2,000 MCG in Sodium Chloride 0.9% 60 ML IV SCH (07:36)
[2019-06-26] MEDS: Enoxaparin Sodium 40 MG/0.4 ML SYRINGE SC SCH (07:47)
[2019-06-26] MEDS: Famotidine/PF 20 mg/2ml Vial SLOW IVP SCH (07:47)
[2019-06-26] MEDS: Aspirin 300 MG Suppository PR SCH (07:48)
[2019-06-26] MEDS: methylPREDNISolone Sod Succ 40 MG VIAL IVP SCH ×2 (07:48→21:30)
--- NOTE | 2019-06-26 09:19 | PDOC.HOSPP ---
- Subjective Encounter Date: 06/26/19 Encounter Time: 09:00 Subjective: overnight, went into afib w/rvr, started on cardizem and now rate controlled. otherwise no change. Pending discussion with family 06/26 - Objective Vital Signs & Weight: Vital Signs (12 hours) Temp Pulse Resp BP Pulse Ox 06/26/19 07:54 89 150/88 H 06/26/19 07:23 22 H 91 L 06/26/19 06:34 89 150/88 H 06/26/19 06:33 94 21 H 91 L 06/26/19 06:00 19 06/26/19 04:00 100.1 F H 18 06/26/19 03:40 119 H 166/99 H 06/26/19 02:50 172 H 142/88 H 06/26/19 02:00 20 06/26/19 01:49 59 L 06/26/19 01:48 94 L 06/26/19 01:25 53 L 136/63 06/26/19 00:00 100.4 F H 21 H 06/25/19 23:15 91 172/88 H 06/25/19 22:00 18 06/25/19 21:53 81 Weight Admit Weight 322 lb Weight 318 lb 5.56 oz Most Recent Monitor Data Heart Rate from ECG 94 NIBP 122/91 NIBP BP-Mean 101 Respiration from ECG 16 SpO2 91 I&O: 06/25/19 06/26/19 06/27/19 06:59 06:59 06:59 Intake Total 5661 5654.9 348 Output Total 97780 4915 300 Balance -4489 739.9 48 Result Diagrams: 06/26/19 02:27 06/26/19 02:27 Additional Labs: Accuchecks 06/26/19 06/26/19 06/26/19 09:07 08:13 07:24 POC Glucose 171 H 189 H 183 H 06/26/19 06/26/19 06/26/19 06:08 05:03 04:07 POC Glucose 259 H 217 H 132 H 06/26/19 06/26/19 06/26/19 03:11 02:07 01:11 POC Glucose 144 H 152 H 182 H 06/26/19 06/25/19 06/25/19 00:03 23:06 22:13 POC Glucose 180 H 165 H 178 H 06/25/19 06/25/19 06/25/19 21:21 20:18 18:15 POC Glucose 187 H 188 H 211 H 06/25/19 06/25/19 06/25/19 17:15 16:25 15:20 POC Glucose 188 H 129 H 163 H 06/25/19 06/25/19 06/25/19 14:04 13:17 12:12 POC Glucose 149 H 147 H 153 H 06/25/19 06/25/19 06/25/19 11:16 10:20 09:14 POC Glucose 178 H 196 H 214 H Hospitalist ROS - Review of Systems ROS unobtainable: due to mental status - Medication Medications: Active Medications Generic Name Dose Route Start Last Admin Trade Name Freq PRN Reason Stop Dose Admin Acetaminophen 650 mg 06/19/19 02:08 06/25/19 08:03 Tylenol PO 650 mg Q4H PRN Administration Headache/Fever/Mild Pain (1-3) Albuterol/Ipratropium 3 ml 06/19/19 07:00 06/26/19 06:33 Duoneb NEB 3 ml [id number] SHARMILA Administration Aspirin 300 mg 06/19/19 09:00 06/26/19 07:48 Aspirin [place] 300 mg DAILY SHARMILA Administration Clonidine 0.1 mg 06/19/19 02:07 06/24/19 03:54 Catapres PO 0.1 mg BID PRN Administration SBP > 160 use second Desmopressin Acetate 2 mcg 06/25/19 21:00 06/26/19 08:35 Ddavp IVP 2 mcg BID SHARMILA Administration Enoxaparin Sodium 40 mg 06/19/19 09:00 06/26/19 07:47 Lovenox SC 40 mg 09 SHARMILA Administration Famotidine 20 mg 06/24/19 09:00 06/26/19 07:47 Pepcid SLOW IVP 20 mg DAILY SHARMILA Administration Hydralazine HCl 10 mg 06/19/19 02:07 06/24/19 03:52 Apresoline SLOW IVP 10 mg Q6H PRN Administration SBP GREATER THAN 160 Hydralazine HCl 10 mg 06/23/19 13:00 06/26/19 07:54 Apresoline SLOW IVP Not Given Q4HR SHARMILA Fentanyl Citrate 2,000 mcg/ 100 mls @ 0 mls/hr 06/19/19 02:19 06/26/19 07:36 Sodium Chloride IV 07/19/19 02:19 100 mls INF SHARMILA Administration Protocol Per Protocol Nicardipine HCl 50 mg/ Sodium 250 mls @ 0 mls/hr 06/23/19 14:00 06/25/19 22: 34 Chloride IVPB 250 mls INF SHARMILA Administration Protocol Titrate Dextrose/Water 1,000 mls @ 100 mls/hr 06/25/19 06:15 06/26/19 01:35 D5w IV 1,000 mls .Q10H SHARMILA Administration Insulin Human Regular 100 101 mls @ 0 mls/hr 06/25/19 06:15 06/25/19 06:35 units/ Sodium Chloride IVPB 101 mls INF SHARMILA Administration Protocol Titrate Vancomycin HCl 2 gm/ Sodium 500 mls @ 250 mls/hr 06/25/19 12:00 06/26/19 01: 26 Chloride IVPB 500 mls 1200,2359 SHARMILA Administration Diltiazem HCl 125 mg/ 125 mls @ 0 mls/hr 06/26/19 02:45 06/26/19 02:57 Miscellaneous Medication 1 IVPB 125 mls each/ Sodium Chloride INF SHARMILA Administration Protocol As Directed Labetalol HCl 20 mg 06/19/19 02:07 06/23/19 20:29 Normodyne SLOW IVP 20 mg Q4H PRN Administration SBP > 160 use third Lorazepam 2 mg 06/19/19 02:19 06/21/19 21:19 Ativan SLOW IVP 07/19/19 02:19 2 mg Q1H PRN Administration Breakthrough agitation Methylprednisolone Sodium Succinate 20 mg 06/25/19 09:00 06/26/19 07:48 Solu-Medrol IVP 20 mg BID SHARMILA Administration Metoprolol Tartrate 5 mg 06/19/19 16:00 06/26/19 07:54 Lopressor IVP Not Given 0400,1000,1600,2200 SHARMILA Propofol 1,000 mg 06/19/19 02:19 06/26/19 09:11 Diprivan IV 07/19/19 02:19 1,000 mg INF PRN Administration TO ACHIEVE GOAL RASS Protocol Vecuronium [place] 10 mg 06/19/19 07:30 06/24/19 02:48 Norcuron IV 10 mg Q30MIN PRN Administration SHIVERING - Exam General - other findings: intubated and sedated Eye - other findings: both eyes deviated to upper right ENT: moist mucosa Neck: no JVD Heart: no gallops, no rubs, irregular Heart - other findings: rate 80s-90s Respiratory: no wheezes, no rales, no ronchi Respiratory - other findings: left lung sound reduced throughout, right lung sounds coarse Gastrointestinal: soft, non-distended, normal bowel sounds Extremities: 1+ LE edema Hosp A/P - Plan #anoxic encephalopathy -no change; pending discussion regarding terminal extubation with family (06/26) #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
[2019-06-26] MEDS ORDERED: Dextrose 5% in Water 1,000 ML IV SCH ×2 (09:23→09:27)
--- NOTE | 2019-06-26 09:38 | PRG ---
DATE OF SERVICE: 06/26/2019 SUBJECTIVE: Mr. Gómez remains unresponsive on multiple drips as outlined in the chart. OBJECTIVE: VITAL SIGNS: Blood pressure is 150/80. LUNGS: Clear. CARDIAC: Normal S1. Normal S2. ABDOMEN: Soft and nontender. ASSESSMENT: Status post arrest as outlined in the chart with hypoxic brain injury. PLAN: The nurse tells me the patient is do not resuscitate. They will discuss terminal extubation tomorrow with the family. Dr. Gallego to return tomorrow. Job ID: [id number]
--- NOTE | 2019-06-26 09:38 | RAD ---
PORTABLE CHEST: DATE: 06/26/2019. PROVIDED CLINICAL HISTORY: Respiratory insufficiency. FINDINGS: Comparison 06/25/2019. Further increase in opacification of the left hemithorax. The examination is r otated without definite evidence for mediastinal shift. The right lung remains clear. IMPRESSION: Increased opacification of the left hemithorax, now near total. POS: RAVI
--- NOTE | 2019-06-26 10:21 | PRG ---
DATE OF SERVICE: 06/26/2019 35 minutes critical time. SUBJECTIVE: The patient remains intubated on mechanical ventilation. He actually does have some fairly profound reflexes. He has spontaneous respirations. He is able to move his eyes. He blinks. He has a vigorous gag reflex and also bites down the endotracheal tube when being suction. OBJECTIVE: VITAL SIGNS: His temperature is 100.1 with a T-max of 102.6 yesterday, pulse 94, blood pressure 122/91, O2 saturation 91%. HEENT: Remarkable for eyes. They are deviated laterally bilaterally. His oropharynx is clear. NECK: No adenopathy, JVD. LUNGS: Coarse breath sounds. CARDIAC: S1, S2. Regular. ABDOMEN: Soft and obese. EXTREMITIES: No edema. LABORATORY DATA: Sodium 162, potassium 3.8, chloride 125, CO2 of 28, BUN 59, creatinine 1.8, glucose 176, white blood cell count 9.3, hematocrit 45.7, and platelet count 112. ABG; pH of 7.36, PCO2 42, and pO2 of 60, that is on SIMV rate 18, tidal volume 550, PEEP 10, pressure support 10, and FiO2 of 70%. His x-ray showed what appears to be left lung collapse. ASSESSMENT: 1. Acute respiratory failure requiring mechanical ventilation. 2. Status post out of hospital arrest. 3. Central diabetes insipidus. 4. Qjzrh-di-adlfjdw kidney disease. 5. Diabetes mellitus. 6. Hypertension. 7. Obesity. 8. Left lung collapse. PLAN: 1. Bronchoscopy was performed to alleviate the mucus plugging. 2. We will increase his free water. 3. Continue DDAVP. 4. I will go ahead and get a CT of his head as this has not been done and it may help decision-making tomorrow. Job ID: [id number]
--- NOTE | 2019-06-26 10:44 | OP ---
DATE OF PROCEDURE: 06/26/2019 PROCEDURE PERFORMED: Bronchoscopy. INDICATION: Left lung collapse, hypoxemia. ANESTHESIA: None. DESCRIPTION OF PROCEDURE: The procedure was done in his ICU room. Adapter was placed into his endotracheal tube. A size 2.4-mV bronchoscope was placed down the adapter into the endotracheal tube. There were copious secretions present in the endotracheal tube extending down the left mainstem bronchus. These were lavaged with saline and removed. The right mainstem bronchus, right upper lobe, and right lower lobe were clear except for some scant secretions in the right lower lobe. The left upper lobe, left lower lobe bifurcation was very difficult to identify. He had severe edema around his left upper lobe origin. I did not see any endobronchial lesions there. I was able to lavage this and remove copious secretions. He tolerated the procedure well. Job ID: [id number]
--- NOTE | 2019-06-26 11:01 | CT ---
Exam: Head CT without contrast HISTORY: Prolonged cardiac arrest. CPR a few days ago. No improvement since intubation. COMPARISON: none FINDINGS: Hemorrhage: No intraparenchymal hemorrhage or extra-axial hematoma. Brain parenchyma: Loss of cortical ortiz-white matter differentiation. There is scattered sulcal effac ement. No midline shift. Basilar cisterns are patent. Indeterminate hypodensity in the left cerebellar hemisphere measures 1.3 x 1.1 cm. Ventricular system: Ventricles and sulci are patent and symmetric. Calvarium: Intact. Sinuses and mastoid air cells: Adequate aeration. IMPRESSION: 1. No intracranial hemorrhage 2. Diffuse loss of cortical ortiz-white matter differentiation with scattered sulcal effacement. Corre late for anoxic brain injury. 3. Indeterminate hypodensity in the left cerebellar hemisphere.
[2019-06-26 12:33] LABS: Sodium 161 mmol/L (136-145)
[2019-06-26] MEDS: HUMULIN R 100 UNITS in Sodium Chloride 0.9% 100 ML IVPB SCH (16:27)
[2019-06-26] MEDS: Micafungin 100 MG in Sodium Chloride 0.9% 100 ML IVPB SCH (20:26)
[2019-06-27] MEDS: fentaNYL Citrate/PF 2,000 MCG in Sodium Chloride 0.9% 60 ML IV SCH ×2 (00:16→20:19)
[2019-06-27 00:32] LABS: Vancomycin, Trough 28.8 ug/mL
[2019-06-27] MEDS: Propofol 1,000 MG/100 ML VIAL IV PRN ×7 (01:00→23:24)
[2019-06-27] MEDS: hydrALAZINE 20 MG/ML VIAL SLOW IVP SCH ×6 (01:48→21:19)
[2019-06-27] MEDS: Dextrose 5% in Water 1,000 ML IV SCH ×3 (05:11→19:27)
[2019-06-27 05:17] LABS: Anion Gap 16 mmol/L (10-20); BUN (Urea Nitrogen) 65 mg/dL (8.9-20.6); Calc. Creatinine Clearance 118 mL/min (70-130); Calcium 7.9 mg/dL (7.8-10.44); Carbon Dioxide 24 mmol/L (22-29); Chloride 121 mmol/L (98-107); Estimated GFR-MDRD 45; Glucose 208 mg/dL (70-105); Potassium 4.2 mmol/L (3.5-5.1); Sodium 157 mmol/L (136-145)
[2019-06-27] MEDS: Metoprolol Tartrate 5 MG/5 ML VIAL IVP SCH ×4 (05:40→22:35)
[2019-06-27 06:15] LABS: Hemoglobin 13.6 g/dL (14.0-18.0); Mean Corpuscular HGB CONC 31.1 g/dL (32.0-36.0); Mean Corpuscular Hemoglobin 29.9 pg (27.0-31.0); Mean Corpuscular Volume 95.9 fL (78.0-98.0); Platelet Count 98 thou/uL (130-400); RBC Distribution Width 13.9 % (11.5-14.5); Red Blood Cell (RBC) Count 4.56 mill/uL (4.70-6.10); White Blood Cell (WBC) Count 10.3 thou/uL (4.8-10.8)
[2019-06-27 06:25] LABS: Band 7 % (5-11); Lymphocytes 15 % (21-51); MDiff Complete? YES; Monocytes 6 % (0-10); Myelocyte 1 % (0-0); Neutrophil 71 % (42-75); Platelet Morphology Comment Appears Decreased; Toxic Granulation SLIGHT
[2019-06-27 07:04] LABS: Actual Bicarbonate (HCO3a) 23.1 mEq/L (22-28); Base Excess (BEa) -1.9 mEq/L (-2.0 to +3.0); CO2 Tension 40.1 mmHg (35.0-45.0); Calcium, Ionized 1.16 mmol/L (1.12-1.30); Carboxyhemoglobin (COHb) 1.2 gm% (0.0-3.0); Hemoglobin (Hb) 15.1 g/dL (14.0-18.0); O2 Tension (PaO2), arterial 72.9 mmHg (80.0-100.0); Potassium - ABG Lab 4.11 mmol/L (3.70-5.30); pH, Arterial 7.38 (7.35-7.45)
[2019-06-27 07:08] LABS: Puncture Site RRA
[2019-06-27 07:09] LABS: ALV-art Gradient 269.125 (0-20)
[2019-06-27] MEDS: hydrALAZINE 20 MG/ML VIAL SLOW IVP PRN ×2 (07:39→14:13)
--- NOTE | 2019-06-27 08:21 | PDOC.HOSPP ---
- Subjective Encounter Date: 06/27/19 Encounter Time: 07:00 Subjective: overnight, had bronchoscopy due to left lung collapse. copious secretions removed. this morning, no change. Has cough and gag reflex. Pending discussion with mother later today at 11am regarding goals of care. - Objective Vital Signs & Weight: Vital Signs (12 hours) Temp Pulse Resp BP Pulse Ox 06/27/19 07:39 92 165/88 H 06/27/19 07:00 100.3 F H 06/27/19 06:35 92 165/88 H 06/27/19 06:34 89 21 H 94 L 06/27/19 06:00 21 H 06/27/19 05:11 102 H 144/86 H 06/27/19 04:00 100.5 F H 18 06/27/19 03:53 102 H 158/88 H 06/27/19 02:04 96 06/27/19 02:03 95 06/27/19 02:00 21 H 06/27/19 00:00 100.3 F H 21 H 06/26/19 22:42 76 145/82 H 06/26/19 22:00 21 H Weight Admit Weight 322 lb Weight 322 lb 12.108 oz Most Recent Monitor Data Heart Rate from ECG 92 NIBP 170/96 NIBP BP-Mean 120 Respiration from ECG 18 SpO2 95 I&O: 06/26/19 06/27/19 06/28/19 06:59 06:59 06:59 Intake Total 5654.9 6988.7 Output Total 4915 3020 250 Balance 739.9 3968.7 -250 Result Diagrams: 06/27/19 03:51 06/27/19 03:51 Additional Labs: Accuchecks 06/27/19 06/27/19 06/27/19 07:23 06:12 05:13 POC Glucose 194 H 193 H 167 H 06/27/19 06/27/19 06/27/19 03:58 03:10 02:06 POC Glucose 183 H 187 H 212 H 06/27/19 06/27/19 06/26/19 01:26 00:10 22:00 POC Glucose 181 H 135 H 141 H 06/26/19 06/26/19 06/26/19 21:26 20:06 18:54 POC Glucose 150 H 171 H 160 H 0506/26/19 06/26/19 18:03 16:54 15:53 POC Glucose 157 H 183 H 162 H 06/26/19 06/26/19 06/26/19 15:01 14:05 13:08 POC Glucose 169 H 187 H 134 H 06/26/19 06/26/19 06/26/19 12:06 11:47 11:09 POC Glucose 147 H 138 H 148 H 06/26/19 06/26/19 06/26/19 10:16 09:07 08:13 POC Glucose 165 H 171 H 189 H 06/26/19 07:24 POC Glucose 183 H Hospitalist ROS - Review of Systems ROS unobtainable: due to endotracheal tube - Medication Medications: Active Medications Generic Name Dose Route Start Last Admin Trade Name Freq PRN Reason Stop Dose Admin Acetaminophen 650 mg 06/19/19 02:08 06/25/19 08:03 Tylenol PO 650 mg Q4H PRN Administration Headache/Fever/Mild Pain (1-3) Albuterol/Ipratropium 3 ml 06/19/19 07:00 06/27/19 06:34 Duoneb NEB 3 ml [id number] SHARMILA Administration Aspirin 300 mg 06/19/19 09:00 06/26/19 07:48 Aspirin [place] 300 mg DAILY SHARMILA Administration Clonidine 0.1 mg 06/19/19 02:07 06/24/19 03:54 Catapres PO 0.1 mg BID PRN Administration SBP > 160 use second Desmopressin Acetate 2 mcg 06/25/19 21:00 06/26/19 21:38 Ddavp IVP 2 mcg BID SHARMILA Administration Enoxaparin Sodium 40 mg 06/19/19 09:00 06/26/19 07:47 Lovenox [place] 40 mg 0900 SHARMILA Administration Famotidine 20 mg 06/24/19 09:00 06/26/19 07:47 Pepcid SLOW IVP 20 mg DAILY SHARMILA Administration Hydralazine HCl 10 mg 06/19/19 02:07 06/27/19 07:39 Apresoline SLOW IVP 10 mg Q6H PRN Administration SBP GREATER THAN 160 Hydralazine HCl 10 mg 06/23/19 13:00 06/27/19 05:11 Apresoline SLOW IVP Not Given Q4HR SHARMILA Fentanyl Citrate 2,000 mcg/ 100 mls @ 0 mls/hr 06/19/19 02:19 06/27/19 00:16 Sodium Chloride IV 07/19/19 02:19 100 mls INF SHARMILA Administration Protocol Per Protocol Nicardipine HCl 50 mg/ Sodium 250 mls @ 0 mls/hr 06/23/19 14:00 06/25/19 22: 34 Chloride IVPB 250 mls INF SHARMILA Administration Protocol Titrate Insulin Human Regular 100 101 mls @ 0 mls/hr 06/25/19 06:15 06/26/19 16:27 units/ Sodium Chloride IVPB 101 mls INF SHARMILA Administration Protocol Titrate Diltiazem HCl 125 mg/ 125 mls @ 0 mls/hr 06/26/19 02:45 06/26/19 16:28 Miscellaneous Medication 1 IVPB 125 mls each/ Sodium Chloride INF SHARMILA Administration Protocol As Directed Dextrose/Water 1,000 mls @ 150 mls/hr 06/26/19 09:57 06/27/19 05:11 D5w IV 1,000 mls .Q6H40M SHARMILA Administration Micafungin Sodium 100 mg/ 100 mls @ 100 mls/hr 06/26/19 20:00 06/26/19 20:26 Sodium Chloride IVPB 100 mls 2000 SHARMILA Administration Labetalol HCl 20 mg 06/19/19 02:07 06/23/19 20:29 Normodyne SLOW IVP 20 mg Q4H PRN Administration SBP > 160 use third Lorazepam 2 mg 06/19/19 02:19 06/21/19 21:19 Ativan SLOW IVP 07/19/19 02:19 2 mg Q1H PRN Administration Breakthrough agitation Methylprednisolone Sodium Succinate 20 mg 06/25/19 09:00 06/26/19 21:30 Solu-Medrol IVP 20 mg BID SHARMILA Administration Metoprolol Tartrate 5 mg 06/19/19 16:00 06/27/19 05:40 Lopressor IVP 5 mg 0400,1000,1600,2200 SHARMILA Administration Propofol 1,000 mg 06/19/19 02:19 06/27/19 07:39 Diprivan IV 07/19/19 02:19 1,000 mg INF PRN Administration TO ACHIEVE GOAL RASS Protocol Vecuronium [place] 10 mg 06/19/19 07:30 06/24/19 02:48 Norcuron IV 10 mg Q30MIN PRN Administration SHIVERING - Exam General - other findings: intubated and sedated Eye - other findings: right upper gaze deviation resolved Neck: no JVD Heart: irregular Heart - other findings: atrial fibrillation on telemetry; HR 100s Respiratory: wheezes Respiratory - other findings: improved breath sound on left throughout; reduced in LLF Gastrointestinal: soft, non-tender, non-distended, normal bowel sounds, no palpable masses Extremities: no edema Psychiatric: normal affect, normal behavior, A&O x 3 Hosp A/P - Plan #anoxic encephalopathy -no change; pending discussion regarding goals of care with family (06/26) #Fungemia -blood culture growing yeast -started micafungin; holding further workup pending goals of care discussion #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
[2019-06-27] MEDS ORDERED: Micafungin 100 MG in Sodium Chloride 0.9% 100 ML IVPB SCH (09:00)
[2019-06-27] MEDS: Famotidine/PF 20 mg/2ml Vial SLOW IVP SCH (09:13)
[2019-06-27] MEDS: Aspirin 300 MG Suppository PR SCH (09:14)
[2019-06-27] MEDS: methylPREDNISolone Sod Succ 40 MG VIAL IVP SCH ×2 (09:15→21:20)
[2019-06-27] MEDS: Enoxaparin Sodium 40 MG/0.4 ML SYRINGE SC SCH (09:52)
[2019-06-27] MEDS ORDERED: Scopolamine 1.5 mg/72 hour Patch TD SCH (11:00)
--- NOTE | 2019-06-27 11:30 | PDOC.PALPN ---
Palliative Progress Note - Subjective Remains intubated and sedated, had bronchoscopy over the weekend secondary to left lung collapse. Patient mother and father to bedside. - Objective Vital Signs: Vital Signs - Most Recent Temp Pulse Resp BP Pulse Ox 100.3 F H 99 19 165/102 H 94 L 06/27/19 07:00 06/27/19 10:20 06/27/19 10:00 06/27/19 10:06/27/19 06:34 - Physical Exam Constitutional: ill appearing HEENT: moist MMs Deviation from normal: Mechanical ventilation, adventiciouls lung sounds Cardiovascular: irregular Gastrointestinal: soft, positive bowel sounds, incontinent Genitourinary: daigle catheter Musculoskeletal: pulses present, edema present, diffuse muscle atrophy Deviation from normal: encephalopathic, no response to gentle stimuli Skin: cap refill <2 seconds, no lesions, no rash Deviation from normal: encephalopathy - Assessment (1) Palliative care encounter Code(s): Z51.5 - ENCOUNTER FOR PALLIATIVE CARE Current Visit: Yes Status: Acute (2) JENNIFFER (acute kidney injury) Code(s): N17.9 - ACUTE KIDNEY FAILURE, UNSPECIFIED Current Visit: Yes Status : Acute (3) Acute respiratory failure with hypoxia Code(s): J96.01 - ACUTE RESPIRATORY FAILURE WITH HYPOXIA Current Visit: Yes Status: Acute (4) Anoxic brain injury Current Visit: Yes Status: Acute (5) Cardiac arrest Code(s): I46.9 - CARDIAC ARREST, CAUSE UNSPECIFIED Current Visit: Yes Status : Acute - Plan Plan: Discussed Goal of Care with mother and step father at length. They confirm they have been well informed and have no questions at this time. Mother states "he has told us in the past he never wanted to be on machines". Discussed poor prognosis and poor meaningful recovery. Revisited option of compassionate extubation verses PEG/Trach. Emotional support and Therapeutic listening. Mother has elected to return home, and visit with family, returning tomorrow most likely to proceed with compassionate extubation. STA organ donation visited with family, they are receptive to consider organ donation. Please also refer to [facility] notes in note sections. [40] minutes spent on this encounter with >50% of the time in counseling and coordination of care. - ROS Non Response: due to mental status
[2019-06-27] MEDS: HUMULIN R 100 UNITS in Sodium Chloride 0.9% 100 ML IVPB SCH ×2 (12:08→23:16)
[2019-06-27 13:02] LABS: Vancomycin, Random 16.3 ug/mL (See Comment)
[2019-06-27 13:27] VITALS: BMI 46.3
[2019-06-27] MEDS: Vancomycin HCl 1.25 GM in Sodium Chloride 0.9% 250 ML 250 ML IVPB SCH (14:11)
--- NOTE | 2019-06-27 17:33 | PRG ---
DATE OF SERVICE: 06/27/2019 Roge Gómez developed increased urine output, that responded to DDAVP over the weekend. He has had no significant neurological improvement. Pulse is 112, blood pressure 149/101, respiratory rate is per mechanical ventilation. Lungs and abdomen are unchanged. He is growing yeast out of one blood culture. White count 10.3, hemoglobin 13.6, platelets 98,000. Apparently, the mother is ready to withdraw support. CT of the head done yesterday shows a loss of ortiz-white matter differentiation, which is not surprising. Intake and output, positive 3968. White count 10.3, hemoglobin 13.6, platelets 98. Ph 7.38, CO2 of 40, PO2 of 72. We will stop the daily x-rays and blood gases and daily blood draws. Prognosis for any type of survival is dismal. Job ID: [id number]
--- NOTE | 2019-06-27 18:48 | PDOC.EVN ---
Event Note - Event Note Event Note: Family came and decided after discussing with STA to defer extubation to 06/27. At the time STA didn't know of fungemia. Discussed with Dr. Young the unlikelihood of it being a contaminant, reported to AMADO, who decided to not harvest considering fungemia. Per nurse, family notified by palliative in regards to STA decision.
[2019-06-27] MEDS: Micafungin 100 MG in Sodium Chloride 0.9% 100 ML IVPB SCH (19:28)
[2019-06-27] MEDS: Diltiazem HCl 125 MG, Admixture Fee 1 EACH in Sodium Chloride 0.9% 100 ML IVPB SCH (20:42)
[2019-06-28] MEDS: hydrALAZINE 20 MG/ML VIAL SLOW IVP SCH ×6 (01:54→22:24)
[2019-06-28] MEDS: Dextrose 5% in Water 1,000 ML IV SCH ×2 (03:55→09:19)
[2019-06-28] MEDS: Propofol 1,000 MG/100 ML VIAL IV PRN ×2 (04:00→06:49)
[2019-06-28] MEDS: Vancomycin HCl 1.25 GM in Sodium Chloride 0.9% 250 ML 250 ML IVPB SCH (04:35)
[2019-06-28] MEDS: Metoprolol Tartrate 5 MG/5 ML VIAL IVP SCH (04:36)
[2019-06-28] MEDS: Aspirin 300 MG Suppository PR SCH ×2 (09:12→16:21)
[2019-06-28] MEDS: Famotidine/PF 20 mg/2ml Vial SLOW IVP SCH (09:13)
[2019-06-28] MEDS: Enoxaparin Sodium 40 MG/0.4 ML SYRINGE SC SCH (09:13)
[2019-06-28] MEDS: methylPREDNISolone Sod Succ 40 MG VIAL IVP SCH (09:14)
[2019-06-28] MEDS ORDERED: Dextrose 5% in Water 1,000 ML IV SCH (09:44)
[2019-06-28] MEDS ORDERED: Propofol 1,000 MG/100 ML VIAL IV ONE (11:33)
[2019-06-28] MEDS: Morphine 4 MG/ML VIAL SLOW IVP PRN ×2 (14:41→22:23)
[2019-06-28] MEDS: Lorazepam 2 MG/ML VIAL SLOW IVP PRN ×2 (15:01→22:23)
--- NOTE | 2019-06-28 16:32 | PRG ---
DATE OF SERVICE: 06/28/2019 SUBJECTIVE: Roge Gómez does not improve clinically. The family wanted to have a cousin and a daughter at the bedside when he was extubated. The daughter lives 3 hours away and arrived recently and the patient has been extubated. Mother did not want to be here. It is unclear how long he will hang on. I anticipated that he would succumb quickly, but he is not. We will continue with supportive care and comfort measures only. All of his unnecessary drugs except for comfort related drugs have been discontinued. He can transfer out of critical care. Job ID: [id number]
[2019-06-28 19:11] VITALS: BP 171/93; TEMP 101
--- NOTE | 2019-06-28 19:39 | PDOC.HOSPP ---
- Subjective Encounter Date: 06/28/19 Encounter Time: 07:30 Subjective: no overnight events and no change in clinical consciousness. Pending transition to comfort care. - Objective Vital Signs & Weight: Vital Signs (12 hours) Temp Pulse Resp BP BP Pulse Ox 06/28/19 19:10 101.0 F H 145 H 24 H 171/93 H 72 L 06/28/19 17:35 79 118/66 06/28/19 16:20 79 118/66 06/28/19 14:00 18 06/28/19 12:00 100.2 F H 18 06/28/19 11:59 79 118/66 06/28/19 10:46 79 118/66 06/28/19 10:00 18 06/28/19 08:00 99.9 F H 25 H 100 06/28/19 07:46 89 171/98 H Weight Admit Weight 322 lb Weight 328 lb 7.82 oz Most Recent Monitor Data Heart Rate from ECG 137 NIBP 141/87 NIBP BP-Mean 105 Respiration from ECG 20 SpO2 79 I&O: 06/27/19 06/28/19 06/29/19 06:59 06:59 06:59 Intake Total 6988.7 6559.3 1375.0 Output Total 3020 3695 1500 Balance 3968.7 2864.3 -125.0 Result Diagrams: 06/27/19 03:51 06/27/19 03:51 Additional Labs: Accuchecks 06/28/19 06/28/19 06/28/19 03:11 01:29 00:04 POC Glucose 166 H 174 H 143 H 06/27/19 06/27/19 06/27/19 23:17 22:00 21:14 POC Glucose 155 H 148 H 126 H 06/27/19 20:04 POC Glucose 162 H Hospitalist ROS - Review of Systems ROS unobtainable: due to mental status - Medication Medications: Active Medications Generic Name Dose Route Start Last Admin Trade Name Freq PRN Reason Stop Dose Admin Acetaminophen 650 mg 06/19/19 02:08 06/25/19 08:03 Tylenol PO 650 mg Q4H PRN Administration Headache/Fever/Mild Pain (1-3) Desmopressin Acetate 2 mcg 06/25/19 21:00 06/28/19 09:00 Ddavp IVP 2 mcg BID SHARMILA Administration Hydralazine HCl 10 mg 06/23/19 13:00 06/28/19 17:35 Apresoline SLOW IVP Not Given Q4HR SHARMILA Lorazepam 2 mg 06/19/19 02:19 06/28/19 15:01 Ativan SLOW IVP 07/19/19 02:19 2 mg Q1H PRN Administration Breakthrough agitation Morphine Sulfate 10 mg 06/28/19 09:40 06/28/19 14:41 Morphine SLOW IVP 10 mg Q2H PRN Administration dyspnea - Exam General - other findings: intubated and sedated Eye - other findings: strabismus Heart: RRR, no murmur, no gallops, no rubs Respiratory: no wheezes, no rales, no ronchi Respiratory - other findings: coarse breath sounds, midly reduced on the right Neurological - other findings: unresponsive to painful stimuli Hosp A/P - Plan #anoxic encephalopathy -no change; pending transition to comfort care #Fungemia -blood culture growing yeast -continue micafungin for now #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
--- NOTE | 2019-06-29 10:05 | DIS ---
DATE OF ADMISSION: 06/19/2019 DATE OF DISCHARGE: 06/28/2019 DATE OF EXPIRATION: June 28, 2019. TIME OF EXPIRATION: 2332 hours. HOSPITAL COURSE: Mr. Gómez was a 43-year-old male with unknown medical history who presented after being found down by his roommate with severe respiratory distress. The patient progressed to bradycardia and cardiac arrest and underwent CPR with ROSC and subsequently intubation. He was found to have grossly elevated blood pressure with flash pulmonary edema and type 2 NSTEMI. During his hospitalization in the intensive care unit, multiple teams including the physical therapy aid, neurologist, global transportation manager, and Palliative Care Team were consulted. After additional workup, the patient was found to have anoxic brain injury and never recovered after his cardiac arrest. Extensive discussion with family regarding goals of care resulted in the patient being transitioned to comfort care measures. The patient on June 27. Job ID: [id number]
--- NOTE | 2019-06-30 16:18 | EKG ---
Test Reason : Blood Pressure : / mmHG Vent. Rate : 139 BPM Atrial Rate : 139 BPM P-R Int : 132 ms QRS Dur : 112 ms QT Int : 300 ms P-R-T Axes : 032 -26 167 degrees QTc Int : 456 ms Sinus tachycardia Left ventricular hypertrophy with repolarization abnormality Anteroseptal infarct , age undetermined No STEMI Abnormal ECG Confirmed by RE KEITH M.D. ([id number]), metropolitan editor MOOK SERRANO ([id number]) on 06/30/2019 4:18:23 PM Referred By: Confirmed By:RE KEITH M.D.
== END 2019-06-28 23:32 | disposition expired | DRG 207 ==
LOC: ERS 00:21 → CCU 02:10 → ONC 06-28 17:21
PROVIDERS: ADMIT Internal Medicine; ATTEND Internal Medicine
PROC: 5A1955Z Respiratory Ventilation, Greater than 96 Consecutive Hours (ICD-10-PCS; principal; 2019-06-19)
PROC: 0B968ZZ Drainage of Right Lower Lobe Bronchus, Via Natural or Artificial Opening Endoscopic (ICD-10-PCS; 2019-06-26)
PROC: 0B948ZZ Drainage of Right Upper Lobe Bronchus, Via Natural or Artificial Opening Endoscopic (ICD-10-PCS; 2019-06-26)
PROC: 0B938ZZ Drainage of Right Main Bronchus, Via Natural or Artificial Opening Endoscopic (ICD-10-PCS; 2019-06-26)
DX: J96.01 Acute respiratory failure with hypoxia (principal); E10.10 Type 1 diabetes mellitus with ketoacidosis without coma; I21.A1 Myocardial infarction type 2; N17.0 Acute kidney failure with tubular necrosis; I50.21 Acute systolic (congestive) heart failure; I16.1 Hypertensive emergency; I48.92 Unspecified atrial flutter; E87.2 Acidosis; I42.0 Dilated cardiomyopathy; I42.8 Other cardiomyopathies; E23.2 Diabetes insipidus; Z68.42 Body mass index [BMI] 45.0-49.9, adult; J98.11 Atelectasis; G93.1 Anoxic brain damage, not elsewhere classified; J98.19 Other pulmonary collapse; B49 Unspecified mycosis; Z51.5 Encounter for palliative care; Z66 Do not resuscitate; I46.9 Cardiac arrest, cause unspecified; E87.6 Hypokalemia; F12.10 Cannabis abuse, uncomplicated; Z20.828 Contact with and (suspected) exposure to other viral communicable diseases; I46.8 Cardiac arrest due to other underlying condition; E10.65 Type 1 diabetes mellitus with hyperglycemia; I16.0 Hypertensive urgency; E66.9 Obesity, unspecified; N18.9 Chronic kidney disease, unspecified; I11.0 Hypertensive heart disease with heart failure; Z91.14 Patient's other noncompliance with medication regimen; E10.22 Type 1 diabetes mellitus with diabetic chronic kidney disease
CPT/HCPCS: 36415; 36416; 36556; 51702; 70450; 71045; 71275; 80048; 80076; 80202; 81001; 81002; 82010; 82805; 83605; 83735; 83930; 83935; 84100; 84300; 84484; 85007; 85025; 85027; 85610; 85730; 87040; 87086; 87149; 87635; 93005; 93010; 93306; 94002; 94003; 94640; 95816; 95819; 96365; 96366; 99292; J0360; J1650; J1815; J1940; J2060; J2248; J2270; J2543; J2597; J2704; J2920; J3010; J3370; J3480; J3490; J7030; J7050; J7620; Q9967; S0028; U0003